=== PATIENT | male | born 1970 | race Caucasian/White ===

== ENCOUNTER 2018-10-30 17:52 | Inpatient (IN) ==
[2018-10-30] MEDS ORDERED: ONDANSETRON INJ 2 MG/ML 2 ML VIAL IV STA (18:07)
[2018-10-30] MEDS ORDERED: PANTOprazole 40 MG in SYRINGE 0 ML IV ONE (18:08)
[2018-10-30] MEDS ORDERED: SODIUM CHLORIDE 0.9% 1000ML 1,000 ML IV SCH (18:15)
--- NOTE | 2018-10-30 18:25 | Emergency Department Note ---
Entered by Kylie Irwin acting as a scribe for Adán Worrell DO History of Present Illness General Chief complaint: GI Assessment Stated complaint: GI ASSESSMENT, REFERRED BY URGENT CARE Time Seen by Provider: 10/30/18 18:01 Source: patient Mode of arrival: ambulatory Limitations: no limitations History of Present Illness Provider complaint: Gi Assessment Onset (ago): day(s) 2 Location: abdomen Severity: moderate Pain Consistency: + constant Maximum Pain Intensity: 5 Associated symptoms: + denies other symptoms and + nausea/vomiting; no chest pain, no fever/chills, no shortness of breath and no other (melena, hematochezia) Patient is a 48 year old male presenting to the ED with GI assessment beginning x2 days ago. Patient is having nausea, vomiting and diarrhea beginning upon onset, which is moderate in severity and constant since onset. He notes that he went to [facility], but was sent over to the ED as he is having coffee ground emesis. Patient notes he was recently had an abd contusion and is complaining of lower back pain for the past x2 weeks. Patient denies any current abd pain, melena, hematochezia, fevers, chills, CP, SOB, or any other complaints or concerns at this time. He denies any surgical history. He does not take aspirin, Tylenol or ibuprofen on a regular basis. Home Medications Home Medications Medication Instructions Recorded Confirmed Type trazodone 100 - 200 mg PO HS 08/21/18 10/30/18 History Allergies Allergy/AdvReac Type Severity Reaction Status Date / Time cat dander Allergy Intermediate HIVES, Verified 10/30/18 18:52 PUFFY EYES Past Med/Surg History Medical History No pertinent past medical history Surgical History No pertinent past surgical history Family History Other Family history non-contributory Social History Preferred Language: Portuguese Communication Ability: Effective Motor And Controls Tester Required: No Beliefs That Will Affect Care: None Current Living Situation: Spouse Other Information That Helps Us Care for You: No Feels Safe at Home: Yes Safety Concerns: Feels Safe At This Time Smoking Status: Never smoker Hx Alcohol Use: Yes Hx Substance Use: No Review of Systems See HPI for pertinent positives & negatives. and A total of 10 systems reviewed and were otherwise negative Physical Exam Vital Signs Vital Signs - 24 hr 10/30/18 17:58 10/30/18 18:38 10/30/18 19:19 Temperature 36.4 C L Temperature Source Oral Sepsis Recent Fever Within 48 Hours No Sepsis New/Unexplained Change in Mental Status No Sepsis Action Taken by Nursing No Action Required Pulse Rate 101 H 96 H Pulse Rate [Left Apical] Pulse Rate [Left Finger] Pulse Rate [Right Finger] Pulse Rate from SpO2 Sensor 96 H Pulse Rhythm [Left Finger] Pulse Strength [Left Finger] Respiratory Rate 18 24 Respiratory Effort / Characteristics Respiratory Depth Normal Respiratory Pattern Blood Pressure 121/75 133/79 Blood Pressure [Left Arm] Blood Pressure [Right Arm] Blood Pressure Mean 90 97 Blood Pressure Mean [Left Arm] Blood Pressure Mean [Right Arm] Blood Pressure Position [Left Arm] Blood Pressure Position [Right Arm] Pulse Oximetry 100 97 96 Oxygen Delivery Method Room Air 10/30/18 19:30 10/30/18 20:00 10/30/18 20:22 Temperature Temperature Source Sepsis Recent Fever Within 48 Hours Sepsis New/Unexplained Change in Mental Status Sepsis Action Taken by Nursing Pulse Rate 94 H 86 82 Pulse Rate [Left Apical] Pulse Rate [Left Finger] Pulse Rate [Right Finger] Pulse Rate from SpO2 Sensor 95 H Pulse Rhythm [Left Finger] Pulse Strength [Left Finger] Respiratory Rate 18 18 19 Respiratory Effort / Characteristics Respiratory Depth Respiratory Pattern Blood Pressure 124/78 99/64 L 97/56 L Blood Pressure [Left Arm] Blood Pressure [Right Arm] Blood Pressure Mean 93 75 69 Blood Pressure Mean [Left Arm] Blood Pressure Mean [Right Arm] Blood Pressure Position [Left Arm] Blood Pressure Position [Right Arm] Pulse Oximetry 97 Oxygen Delivery Method 10/30/18 21:00 10/30/18 21:30 10/30/18 22:10 Temperature 36.5 C Temperature Source Oral Sepsis Recent Fever Within 48 Hours Sepsis New/Unexplained Change in Mental Status Sepsis Action Taken by Nursing Pulse Rate 85 90 Pulse Rate [Left Apical] 99 H Pulse Rate [Left Finger] Pulse Rate [Right Finger] Pulse Rate from SpO2 Sensor Pulse Rhythm [Left Finger] Pulse Strength [Left Finger] Respiratory Rate 18 18 20 Respiratory Effort / Characteristics Non-Labored Respiratory Depth Normal Respiratory Pattern Regular Blood Pressure 110/70 131/74 Blood Pressure [Left Arm] Blood Pressure [Right Arm] 132/87 Blood Pressure Mean 83 93 Blood Pressure Mean [Left Arm] Blood Pressure Mean [Right Arm] 102 Blood Pressure Position [Left Arm] Blood Pressure Position [Right Arm] Pulse Oximetry 98 Oxygen Delivery Method Room Air 10/30/18 23:59 10/31/18 02:11 10/31/18 07:39 Temperature 37 C 37.7 C H 37.0 C Temperature Source Oral Oral Oral Sepsis Recent Fever Within 48 Hours Sepsis New/Unexplained Change in Mental Status Sepsis Action Taken by Nursing Pulse Rate Pulse Rate [Left Apical] Pulse Rate [Left Finger] Pulse Rate [Right Finger] 92 H 107 H 95 H Pulse Rate from SpO2 Sensor Pulse Rhythm [Left Finger] Pulse Strength [Left Finger] Respiratory Rate 18 20 20 Respiratory Effort / Characteristics Respiratory Depth Respiratory Pattern Blood Pressure Blood Pressure [Left Arm] 125/100 136/88 111/68 Blood Pressure [Right Arm] Blood Pressure Mean Blood Pressure Mean [Left Arm] 108 104 82 Blood Pressure Mean [Right Arm] Blood Pressure Position [Left Arm] Lying Lying Sitting Blood Pressure Position [Right Arm] Pulse Oximetry 95 96 93 Oxygen Delivery Method Room Air Room Air Room Air 10/31/18 08:00 10/31/18 11:48 10/31/18 13:25 Temperature 37.3 C 37 C Temperature Source Oral Oral Sepsis Recent Fever Within 48 Hours Sepsis New/Unexplained Change in Mental Status Sepsis Action Taken by Nursing Pulse Rate 104 H Pulse Rate [Left Apical] Pulse Rate [Left Finger] Pulse Rate [Right Finger] 97 H 97 H Pulse Rate from SpO2 Sensor Pulse Rhythm [Left Finger] Pulse Strength [Left Finger] Respiratory Rate 18 Respiratory Effort / Characteristics Respiratory Depth Respiratory Pattern Blood Pressure Blood Pressure [Left Arm] 119/85 134/80 Blood Pressure [Right Arm] Blood Pressure Mean Blood Pressure Mean [Left Arm] 96 98 Blood Pressure Mean [Right Arm] Blood Pressure Position [Left Arm] Sitting Blood Pressure Position [Right Arm] Sitting Pulse Oximetry 96 95 Oxygen Delivery Method Room Air Room Air 10/31/18 14:05 10/31/18 14:20 10/31/18 14:35 Temperature Temperature Source Sepsis Recent Fever Within 48 Hours Sepsis New/Unexplained Change in Mental Status Sepsis Action Taken by Nursing Pulse Rate Pulse Rate [Left Apical] Pulse Rate [Left Finger] 90 90 91 H Pulse Rate [Right Finger] Pulse Rate from SpO2 Sensor Pulse Rhythm [Left Finger] Regular Regular Regular Pulse Strength [Left Finger] Normal Normal Normal Respiratory Rate 16 18 18 Respiratory Effort / Characteristics Non-Labored Spontaneous Non-Labored Spontaneous Non-Labored Spontaneous Respiratory Depth Normal Normal Normal Respiratory Pattern Regular Regular Regular Blood Pressure Blood Pressure [Left Arm] 110/65 Blood Pressure [Right Arm] 96/55 L 107/66 110/65 Blood Pressure Mean Blood Pressure Mean [Left Arm] 80 Blood Pressure Mean [Right Arm] 68 79 80 Blood Pressure Position [Left Arm] Lying Blood Pressure Position [Right Arm] Lying Lying Lying Pulse Oximetry 95 95 94 Oxygen Delivery Method Room Air Room Air Room Air 10/31/18 15:44 Temperature 36.5 C Temperature Source Oral Sepsis Recent Fever Within 48 Hours Sepsis New/Unexplained Change in Mental Status Sepsis Action Taken by Nursing Pulse Rate Pulse Rate [Left Apical] Pulse Rate [Left Finger] 102 H Pulse Rate [Right Finger] Pulse Rate from SpO2 Sensor Pulse Rhythm [Left Finger] Pulse Strength [Left Finger] Respiratory Rate 18 Respiratory Effort / Characteristics Respiratory Depth Respiratory Pattern Blood Pressure Blood Pressure [Left Arm] Blood Pressure [Right Arm] 137/90 Blood Pressure Mean Blood Pressure Mean [Left Arm] Blood Pressure Mean [Right Arm] 105 Blood Pressure Position [Left Arm] Blood Pressure Position [Right Arm] Sitting Pulse Oximetry 95 Oxygen Delivery Method Room Air GENERAL: Patient is awake alert in no acute distress patient is resting comfortably and showing no signs of anxiety EYES: The conjunctivae are clear. The pupils are round and reactive. EARS, NOSE, MOUTH AND THROAT: The nose is without any evidence of any deformity. Mucous membranes are moist tongue is midline NECK: The neck is nontender and supple. RESPIRATORY: Normal respiratory effort is noted there is no evidence of wheezing rhonchi or rales CARDIOVASCULAR: Regular rate and rhythm noted there no murmurs rubs or gallops normal S1 normal S2 GASTROINTESTINAL: The abdomen is soft. Bowel sounds are present in all quadrants. Abdomen is nontender. There is slight resolving ecchymosis noted around the umbilicus. RECTAL: Dark stool noted which was heme positive BACK: No midline tenderness or or step-off noted range of motion in flexion extension as well as rotation no signs of muscle spasm noted MUSCULOSKELETAL/EXTREMITIES: There is no evidence of gross deformity full range of motion is noted in the hips and shoulders SKIN: There is no obvious evidence of any rash. There are no petechiae, pallor or cyanosis noted. NEUROLOGIC: Patient is awake alert and oriented x3. Course 1803: Past medical records reviewed. The patient was evaluated in room C11A, and a complete history and physical examination were performed 1939: Reassessed patient who notes his pain is worsening. 1951: Discussed case with Dr. Russell, who accepts patient for admission. Administered Medications Hydromorphone HCl (Dilaudid) 1 mg IV Q4H PRN PRN Reason: Pain Stop: 11/14/18 02:00 Last Admin: 10/31/18 16:00 Dose: 1 mg Documented by: [id number] Admin: 10/31/18 10:19 Dose: 1 mg Documented by: [id number] Admin: 10/31/18 05:51 Dose: 1 mg Documented by: [id number] Admin: 10/31/18 02:11 Dose: 1 mg Documented by: [id number] Potassium Chloride 40 meq/ (Sodium Chloride) 1,020 mls @ 150 mls/hr IV .Q6H48M SHANA Stop: 10/31/18 17:53 Last Infusion: 10/31/18 16:06 Dose: 0 mls/hr Documented by: [id number] Admin: 10/31/18 12:36 Dose: 150 mls/hr Documented by: [id number] Infusion: 10/31/18 12:36 Dose: 150 mls/hr Documented by: [id number] Infusion: 10/31/18 08:19 Dose: 150 mls/hr Documented by: [id number] Infusion: 10/31/18 07:44 Dose: 0 mls/hr Documented by: [id number] Admin: 10/31/18 05:15 Dose: 150 mls/hr Documented by: [id number] Infusion: 10/31/18 05:15 Dose: 150 mls/hr Documented by: [id number] Admin: 10/30/18 22:40 Dose: 150 mls/hr Documented by: [id number] Acetaminophen (Ofirmev) 1,000 mg in 100 mls @ 400 mls/hr IV Q8H PRN PRN Reason: Pain or Fever Stop: 11/29/18 22:09 Last Infusion: 10/31/18 12:06 Dose: 0 mls/hr Documented by: [id number] Admin: 10/31/18 11:51 Dose: 400 mls/hr Documented by: [id number] Infusion: 10/31/18 05:44 Dose: 0 mls/hr Documented by: [id number] Admin: 10/31/18 05:20 Dose: 400 mls/hr Documented by: [id number] Pantoprazole Sodium 40 mg/ (Dextrose) 100 mls @ 20 mls/hr IV Q5H SHANA Stop: 11/29/18 22:59 Last Admin: 10/31/18 16:00 Dose: 8 mg/hr, 20 mls/hr Documented by: [id number] Infusion: 10/31/18 12:44 Dose: 8 mg/hr, 20 mls/hr Documented by: [id number] Admin: 10/31/18 07:44 Dose: 8 mg/hr, 20 mls/hr Documented by: [id number] Infusion: 10/31/18 07:11 Dose: 8 mg/hr, 20 mls/hr Documented by: [id number] Admin: 10/31/18 02:11 Dose: 8 mg/hr, 20 mls/hr Documented by: [id number] Infusion: 10/31/18 02:10 Dose: 8 mg/hr, 20 mls/hr Documented by: [id number] Admin: 10/30/18 22:30 Dose: 8 mg/hr, 20 mls/hr Documented by: [id number] Ceftriaxone Sodium 1,000 mg/ (Dextrose) 60 mls @ 100 mls/hr IV DAILY SHANA Stop: 11/10/18 08:59 Last Infusion: 10/31/18 08:19 Dose: 0 mls/hr Documented by: [id number] Admin: 10/31/18 07:43 Dose: 100 mls/hr Documented by: [id number] Sodium Chloride (Nss 1000ml) 1,000 mls @ 125 mls/hr IV .Q8H SHANA Stop: 11/30/18 15:14 Last Admin: 10/31/18 16:00 Dose: 125 mls/hr Documented by: [id number] Ioversol (Optiray 320 100ml) 93 ml IV ONCE PRN PRN Reason: Interaction Checking Stop: 11/03/18 19:06 Last Admin: 10/30/18 19:07 Dose: 93 ml Documented by: [id number] Ioversol (Optiray 320 125ml) 116 ml IV ONCE PRN PRN Reason: Interaction Checking Stop: 11/04/18 14:57 Last Admin: 10/31/18 14:58 Dose: 116 ml Documented by: [id number] Ondansetron HCl (Zofran) 4 mg IV Q6H PRN PRN Reason: Nausea Stop: 11/29/18 22:09 Last Admin: 10/31/18 17:04 Dose: 4 mg Documented by: [id number] Sucralfate (Carafate) 1 gm PO QID SHANA Stop: 11/30/18 16:59 Last Admin: 10/31/18 16:07 Dose: 1 gm Documented by: [id number] Discontinued Medications Hydromorphone HCl (Dilaudid) 1 mg IV NOW STA Stop: 10/30/18 20:20 Last Admin: 10/30/18 20:26 Dose: 1 mg Documented by: [id number] Hydromorphone HCl (Dilaudid) 0.5 mg IV Q4H PRN PRN Reason: Pain Stop: 11/13/18 22:22 Last Admin: 10/31/18 00:02 Dose: 0.5 mg Documented by: [id number] Pantoprazole Sodium 40 mg/ (Syringe) 10 mls @ 5 mls/min IV NOW ONE Stop: 10/30/18 18:09 Last Admin: 10/30/18 18:34 Dose: 5 mls/min Documented by: [id number] Sodium Chloride (Nss 1000ml) 1,000 mls @ 999 mls/hr IV .Q1H1M SHANA Stop: 10/30/18 19:15 Last Infusion: 10/30/18 19:31 Dose: 0 mls/hr Documented by: [id number] Admin: 10/30/18 18:30 Dose: 999 mls/hr Documented by: [id number] Ceftriaxone Sodium (Rocephin) 1,000 mg in 50 mls @ 100 mls/hr IV NOW STA Stop: 10/30/18 20:39 Last Infusion: 10/30/18 21:00 Dose: 0 mls/hr Documented by: [id number] Admin: 10/30/18 20:26 Dose: 100 mls/hr Documented by: [id number] Influenza Virus Vaccine Quadrival (Flucelvax Quad Vaccine) 0.5 ml IM .ONCE ONE Stop: 10/31/18 06:01 Last Admin: 10/31/18 10:19 Dose: 0.5 ml Documented by: [id number] Morphine Sulfate (Morphine Sulfate) 4 mg IV Q15M PRN PRN Reason: Pain Stop: 11/13/18 18:06 Last Admin: 10/30/18 20:02 Dose: 4 mg Documented by: [id number] Admin: 10/30/18 18:29 Dose: 4 mg Documented by: [id number] Ondansetron HCl (Zofran) 4 mg IV NOW STA Stop: 10/30/18 18:08 Last Admin: 10/30/18 18:29 Dose: 4 mg Documented by: [id number] Medical Decision Making Differential Diagnosis Differential diagnosis: Etiologies such as appendicitis, diverticulitis, PUD, biliary pathology, UTI, p ancreatitis, obstruction, mesenteric ischemia, aortic pathology, infections, inflammatory bowel disease, renal colic, as well as others were entertained. Medical Records Attestation: I reviewed the patient's medical records. Home Medications Current Medication List: was personally reviewed by me Laboratory Data Attestation: I reviewed the patient's lab results. Result diagrams: 10/31/18 11:43 10/31/18 04:49 Lab Results 10/30/18 10/30/18 10/30/18 Range/Units 18:20 18:20 18:20 WBC 8.13 (4.8-10.8) K/uL RBC 5.25 (4.7-6.1) M/uL Hgb 16.1 (14.0-18.0) g/dL POC Hgb (14.0-18.0) g/dl Hct 45.1 (42-52) % POC Hct (42-52) % MCV 85.9 (80-100) fL MCH 30.7 (25-34) pg MCHC 35.7 (32-36) g/dL RDW Std Deviation 41.9 (36.4-46.3) fL RDW Coeff of Cruz 13.3 (11.5-14.5) % Plt Count 94 L (130-400) K/uL MPV 10.1 (7.4-10.4) fL Immature Gran % (Auto) 0.4 % Neut % (Auto) 82.8 % Lymph % (Auto) 7.5 % Glynn % (Auto) 9.0 % Eos % (Auto) 0.1 % Baso % (Auto) 0.2 % Immature Gran # (Auto) 0.03 H (0.00-0.02) K/uL Neut # (Auto) 6.73 H (1.4-6.5) K/uL Lymph # (Auto) 0.61 L (1.2-3.4) K/uL Glynn # (Auto) 0.73 H (0.11-0.59) K/uL Eos # (Auto) 0.01 (0-0.5) K/uL Baso # (Auto) 0.02 (0-0.2) K/uL Toxic Vacuolation 1+ Platelet Estimate Decreased (Normal) PT 11.1 (9.0-12.0) Seconds INR 1.1 (0.9-1.1) APTT 30.1 (21.0-31.0) Seconds PTT Ratio 1.1 D-Dimer (0-500) ug/L FEU POC Sodium (135-144) mEq/L Sodium 135 L (136-145) mmol/L POC Potassium (3.3-5.0) mEq/L Potassium 3.1 L (3.5-5.1) mmol/L POC Chloride (101-112) mEq/L Chloride 100 (98-107) mmol/L Carbon Dioxide 27 (21-32) mmol/L POC Total CO2 (24-31) mEq/l Anion Gap 8.0 (3-11) POC Anion Gap (16-25) mmol/L POC BUN (7-18) mg/dl BUN 35 H (7-18) mg/dl Creatinine 1.95 H (0.6-1.4) mg/dl POC Creatinine (0.6-1.3) mg/dl Est Cr Clr Drug Dosing 62.9 ml/min Est GFR ( Amer) 46.5 Est GFR (Non-Af Amer) 40.1 BUN/Creatinine Ratio 18.0 (10-20) Glucose 123 H (70-99) mg/dl POC Glucose (other) (70-99) mg/dl Calcium 8.3 L (8.5-10.1) mg/dl POC Ioniz Calcium Adrian (1.12-1.32) mmol/l Magnesium (1.8-2.4) mg/dl Total Bilirubin 0.8 (0.2-1) mg/dl Direct Bilirubin (0-0.2) mg/dl AST 30 (15-37) U/L ALT 38 (12-78) U/L Alkaline Phosphatase 67 (45-117) U/L Troponin I < 0.015 (0-0.045) ng/ml Total Protein 7.9 (6.4-8.2) gm/dl Albumin 3.3 L (3.4-5.0) gm/dl Globulin 4.6 H (2.5-4.0) gm/dl Albumin/Globulin Ratio 0.7 L (0.9-2) Lipase 203 (73-393) U/L Urine Color Urine Appearance (Clear) Urine pH (4.5-7.5) Ur Specific Ringoes (1.000-1.030) Urine Protein (Negative) Urine Glucose (UA) (Negative) Urine Ketones (Negative) Urine Blood (Negative) Urine Nitrite (Negative) Urine Bilirubin (Negative) Urine Urobilinogen (Negative) Ur Leukocyte Esterase (Negative) Urine WBC (Auto) (0-5) /hpf Urine RBC (Auto) (0-4) /hpf U Hyaline Cast (Auto) (0-5) /lpf U Epithel Cells (Auto) (0-5) /lpf Urine Bacteria (Auto) (Negative) Amorphous Sediment (None Prsent) Urine Yeast 10/30/18 10/31/18 10/31/18 Range/Units 18:25 00:06 01:20 WBC (4.8-10.8) K/uL RBC (4.7-6.1) M/uL Hgb 14.3 (14.0-18.0) g/dL POC Hgb 16.7 (14.0-18.0) g/dl Hct 40.8 L (42-52) % POC Hct 49 (42-52) % MCV (80-100) fL MCH (25-34) pg MCHC (32-36) g/dL RDW Std Deviation (36.4-46.3) fL RDW Coeff of Cruz (11.5-14.5) % Plt Count (130-400) K/uL MPV (7.4-10.4) fL Immature Gran % (Auto) % Neut % (Auto) % Lymph % (Auto) % Glynn % (Auto) % Eos % (Auto) % Baso % (Auto) % Immature Gran # (Auto) (0.00-0.02) K/uL Neut # (Auto) (1.4-6.5) K/uL Lymph # (Auto) (1.2-3.4) K/uL Glynn # (Auto) (0.11-0.59) K/uL Eos # (Auto) (0-0.5) K/uL Baso # (Auto) (0-0.2) K/uL Toxic Vacuolation Platelet Estimate (Normal) PT (9.0-12.0) Seconds INR (0.9-1.1) APTT (21.0-31.0) Seconds PTT Ratio D-Dimer (0-500) ug/L FEU POC Sodium 138 (135-144) mEq/L Sodium (136-145) mmol/L POC Potassium 3.2 L (3.3-5.0) mEq/L Potassium (3.5-5.1) mmol/L POC Chloride 97 L (101-112) mEq/L Chloride (98-107) mmol/L Carbon Dioxide (21-32) mmol/L POC Total CO2 26 (24-31) mEq/l Anion Gap (3-11) POC Anion Gap 19.0 (16-25) mmol/L POC BUN 34 H (7-18) mg/dl BUN (7-18) mg/dl Creatinine (0.6-1.4) mg/dl POC Creatinine 1.9 H (0.6-1.3) mg/dl Est Cr Clr Drug Dosing ml/min Est GFR ( Amer) Est GFR (Non-Af Amer) BUN/Creatinine Ratio (10-20) Glucose (70-99) mg/dl POC Glucose (other) 124 H (70-99) mg/dl Calcium (8.5-10.1) mg/dl POC Ioniz Calcium Adrian 1.08 L (1.12-1.32) mmol/l Magnesium (1.8-2.4) mg/dl Total Bilirubin (0.2-1) mg/dl Direct Bilirubin (0-0.2) mg/dl AST (15-37) U/L ALT (12-78) U/L Alkaline Phosphatase (45-117) U/L Troponin I (0-0.045) ng/ml Total Protein (6.4-8.2) gm/dl Albumin (3.4-5.0) gm/dl Globulin (2.5-4.0) gm/dl Albumin/Globulin Ratio (0.9-2) Lipase (73-393) U/L Urine Color Yellow Urine Appearance Clear (Clear) Urine pH 5.0 (4.5-7.5) Ur Specific Ringoes > 1.045 H (1.000-1.030) Urine Protein 2+ H (Negative) Urine Glucose (UA) Negative (Negative) Urine Ketones Trace H (Negative) Urine Blood 2+ H (Negative) Urine Nitrite Negative (Negative) Urine Bilirubin Negative (Negative) Urine Urobilinogen Negative (Negative) Ur Leukocyte Esterase Negative (Negative) Urine WBC (Auto) 5-10 H (0-5) /hpf Urine RBC (Auto) 0-4 (0-4) /hpf U Hyaline Cast (Auto) 0 (0-5) /lpf U Epithel Cells (Auto) >30 H (0-5) /lpf Urine Bacteria (Auto) 1+ H (Negative) Amorphous Sediment Present H (None Prsent) Urine Yeast Not Reportable 10/31/18 10/31/18 10/31/18 Range/Units 04:49 04:49 04:49 WBC 7.04 (4.8-10.8) K/uL RBC 4.71 (4.7-6.1) M/uL Hgb 13.9 L (14.0-18.0) g/dL POC Hgb (14.0-18.0) g/dl Hct 41.0 L (42-52) % POC Hct (42-52) % MCV 87.0 (80-100) fL MCH 29.5 (25-34) pg MCHC 33.9 (32-36) g/dL RDW Std Deviation 43.6 (36.4-46.3) fL RDW Coeff of Cruz 13.7 (11.5-14.5) % Plt Count 109 L (130-400) K/uL MPV 10.4 (7.4-10.4) fL Immature Gran % (Auto) 0.4 % Neut % (Auto) 82.3 % Lymph % (Auto) 7.5 % Glynn % (Auto) 9.7 % Eos % (Auto) 0.0 % Baso % (Auto) 0.1 % Immature Gran # (Auto) 0.03 H (0.00-0.02) K/uL Neut # (Auto) 5.79 (1.4-6.5) K/uL Lymph # (Auto) 0.53 L (1.2-3.4) K/uL Glynn # (Auto) 0.68 H (0.11-0.59) K/uL Eos # (Auto) 0.00 (0-0.5) K/uL Baso # (Auto) 0.01 (0-0.2) K/uL Toxic Vacuolation Platelet Estimate (Normal) PT (9.0-12.0) Seconds INR (0.9-1.1) APTT (21.0-31.0) Seconds PTT Ratio D-Dimer (0-500) ug/L FEU POC Sodium (135-144) mEq/L Sodium 137 (136-145) mmol/L POC Potassium (3.3-5.0) mEq/L Potassium 3.5 (3.5-5.1) mmol/L POC Chloride (101-112) mEq/L Chloride 104 (98-107) mmol/L Carbon Dioxide 26 (21-32) mmol/L POC Total CO2 (24-31) mEq/l Anion Gap 7.0 (3-11) POC Anion Gap (16-25) mmol/L POC BUN (7-18) mg/dl BUN 31 H (7-18) mg/dl Creatinine 1.46 H D (0.6-1.4) mg/dl POC Creatinine (0.6-1.3) mg/dl Est Cr Clr Drug Dosing 84.2 ml/min Est GFR ( Amer) 65.9 Est GFR (Non-Af Amer) 56.9 BUN/Creatinine Ratio 21.4 H (10-20) Glucose 125 H (70-99) mg/dl POC Glucose (other) (70-99) mg/dl Calcium 7.7 L (8.5-10.1) mg/dl POC Ioniz Calcium Adrian (1.12-1.32) mmol/l Magnesium 2.0 (1.8-2.4) mg/dl Total Bilirubin 0.5 (0.2-1) mg/dl Direct Bilirubin 0.1 (0-0.2) mg/dl AST 32 (15-37) U/L ALT 33 (12-78) U/L Alkaline Phosphatase 64 (45-117) U/L Troponin I (0-0.045) ng/ml Total Protein 7.0 (6.4-8.2) gm/dl Albumin 2.8 L (3.4-5.0) gm/dl Globulin (2.5-4.0) gm/dl Albumin/Globulin Ratio (0.9-2) Lipase 99 (73-393) U/L Urine Color Urine Appearance (Clear) Urine pH (4.5-7.5) Ur Specific Ringoes (1.000-1.030) Urine Protein (Negative) Urine Glucose (UA) (Negative) Urine Ketones (Negative) Urine Blood (Negative) Urine Nitrite (Negative) Urine Bilirubin (Negative) Urine Urobilinogen (Negative) Ur Leukocyte Esterase (Negative) Urine WBC (Auto) (0-5) /hpf Urine RBC (Auto) (0-4) /hpf U Hyaline Cast (Auto) (0-5) /lpf U Epithel Cells (Auto) (0-5) /lpf Urine Bacteria (Auto) (Negative) Amorphous Sediment (None Prsent) Urine Yeast 10/31/18 10/31/18 Range/Units 11:43 12:37 WBC (4.8-10.8) K/uL RBC (4.7-6.1) M/uL Hgb 13.7 L (14.0-18.0) g/dL POC Hgb (14.0-18.0) g/dl Hct 40.2 L (42-52) % POC Hct (42-52) % MCV (80-100) fL MCH (25-34) pg MCHC (32-36) g/dL RDW Std Deviation (36.4-46.3) fL RDW Coeff of Cruz (11.5-14.5) % Plt Count (130-400) K/uL MPV (7.4-10.4) fL Immature Gran % (Auto) % Neut % (Auto) % Lymph % (Auto) % Glynn % (Auto) % Eos % (Auto) % Baso % (Auto) % Immature Gran # (Auto) (0.00-0.02) K/uL Neut # (Auto) (1.4-6.5) K/uL Lymph # (Auto) (1.2-3.4) K/uL Glynn # (Auto) (0.11-0.59) K/uL Eos # (Auto) (0-0.5) K/uL Baso # (Auto) (0-0.2) K/uL Toxic Vacuolation Platelet Estimate (Normal) PT (9.0-12.0) Seconds INR (0.9-1.1) APTT (21.0-31.0) Seconds PTT Ratio D-Dimer 1890 H* (0-500) ug/L FEU POC Sodium (135-144) mEq/L Sodium (136-145) mmol/L POC Potassium (3.3-5.0) mEq/L Potassium (3.5-5.1) mmol/L POC Chloride (101-112) mEq/L Chloride (98-107) mmol/L Carbon Dioxide (21-32) mmol/L POC Total CO2 (24-31) mEq/l Anion Gap (3-11) POC Anion Gap (16-25) mmol/L POC BUN (7-18) mg/dl BUN (7-18) mg/dl Creatinine (0.6-1.4) mg/dl POC Creatinine (0.6-1.3) mg/dl Est Cr Clr Drug Dosing ml/min Est GFR ( Amer) Est GFR (Non-Af Amer) BUN/Creatinine Ratio (10-20) Glucose (70-99) mg/dl POC Glucose (other) (70-99) mg/dl Calcium (8.5-10.1) mg/dl POC Ioniz Calcium Adrian (1.12-1.32) mmol/l Magnesium (1.8-2.4) mg/dl Total Bilirubin (0.2-1) mg/dl Direct Bilirubin (0-0.2) mg/dl AST (15-37) U/L ALT (12-78) U/L Alkaline Phosphatase (45-117) U/L Troponin I (0-0.045) ng/ml Total Protein (6.4-8.2) gm/dl Albumin (3.4-5.0) gm/dl Globulin (2.5-4.0) gm/dl Albumin/Globulin Ratio (0.9-2) Lipase (73-393) U/L Urine Color Urine Appearance (Clear) Urine pH (4.5-7.5) Ur Specific [place] (1.000-1.030) Urine Protein (Negative) Urine Glucose (UA) (Negative) Urine Ketones (Negative) Urine Blood (Negative) Urine Nitrite (Negative) Urine Bilirubin (Negative) Urine Urobilinogen (Negative) Ur Leukocyte Esterase (Negative) Urine WBC (Auto) (0-5) /hpf Urine RBC (Auto) (0-4) /hpf U Hyaline Cast (Auto) (0-5) /lpf U Epithel Cells (Auto) (0-5) /lpf Urine Bacteria (Auto) (Negative) Amorphous Sediment (None Prsent) Urine Yeast Imaging Data Radiologist's Impression: XR chest 1V portable CLINICAL HISTORY: 48 years-old Male presenting with pain. TECHNIQUE: Portable upright AP view of the chest was obtained. COMPARISON: None. FINDINGS: Cardiac silhouette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
[2018-10-30] MEDS: MoRPHine SULFATE 4 MG/ML 1 ML CARP\\VIAL IV PRN ×2 (18:29→20:02)
[2018-10-30 18:37] LABS: iSTAT Creatinine 1.9 mg/dl (0.6-1.3); iSTAT Hemoglobin 16.7 g/dl (14.0-18.0); iSTAT Ionized Calcium 1.08 mmol/l (1.12-1.32); iSTAT Potassium 3.2 mEq/L (3.3-5.0)
[2018-10-30 18:54] LABS: INR 1.1 (0.9-1.1); Partial Thromboplastin Ratio 1.1; Partial Thromboplastin Time 30.1 Seconds (21.0-31.0); Prothrombin Time 11.1 Seconds (9.0-12.0)
--- NOTE | 2018-10-30 18:55 | XRay Report ---
XR chest 1V portable CLINICAL HISTORY: 48 years-old Male presenting with pain. TECHNIQUE: Portable upright AP view of the chest was obtained. COMPARISON: None. FINDINGS: Cardiac silhouette top normal in size. Mildly low lung volumes. No focal opacity. No large effusion o r pneumothorax. Osseous structures normal. Upper abdomen normal. IMPRESSION: 1. No acute cardiopulmonary disease. Electronically signed by: Binu Strange M.D. 10/30/2018 6:53 PM
[2018-10-30 18:58] LABS: Alanine Aminotransferase 38 U/L (12-78); Albumin Level 3.3 gm/dl (3.4-5.0); Aspartate Aminotransferase 30 U/L (15-37); Blood Urea Nitrogen 35 mg/dl (7-18); Calcium 8.3 mg/dl (8.5-10.1); Carbon Dioxide 27 mmol/L (21-32); Chloride 100 mmol/L (98-107); Creatinine Clr Calc Pharmacy 62.9 ml/min; Est GFR (African American) 46.5; Est GFR (Non-African American) 40.1; Glucose 123 mg/dl (70-99); Potassium 3.1 mmol/L (3.5-5.1); Sodium 135 mmol/L (136-145)
[2018-10-30 19:03] LABS: Albumin Globulin Ratio 0.7 (0.9-2); Alkaline Phosphatase 67 U/L (45-117); Bilirubin,Total 0.8 mg/dl (0.2-1); Globulin 4.6 gm/dl (2.5-4.0); Total Protein 7.9 gm/dl (6.4-8.2); Troponin I < 0.015 ng/ml (0-0.045)
[2018-10-30] MEDS ORDERED: IOVERSOL 100ml IV PRN (19:07)
[2018-10-30 19:12] LABS: Hematocrit (blood only) 45.1 % (42-52); Hemoglobin 16.1 g/dL (14.0-18.0); Mean Corpuscular Hgb Conc 35.7 g/dL (32-36); Mean Corpuscular Volume 85.9 fL (80-100); Mean Platelet Volume 10.1 fL (7.4-10.4); Platelet Count 94 K/uL (130-400); RDW Coefficient of Variation 13.3 % (11.5-14.5); RDW Standard Deviation 41.9 fL (36.4-46.3); Red Blood Count 5.25 M/uL (4.7-6.1); White Blood Count 8.13 K/uL (4.8-10.8)
[2018-10-30 19:16] LABS: Basophils # (auto) 0.02 K/uL (0-0.2); Basophils % (auto) 0.2 %; Eosinophils # (auto) 0.01 K/uL (0-0.5); Eosinophils % (auto) 0.1 %; Immature Granulocytes # (auto) 0.03 K/uL (0.00-0.02); Immature Granulocytes % (auto) 0.4 %; Lymphocytes # (auto) 0.61 K/uL (1.2-3.4); Lymphocytes % (auto) 7.5 %; Monocytes # (auto) 0.73 K/uL (0.11-0.59); Neutrophils # (auto) 6.73 K/uL (1.4-6.5); Neutrophils % (auto) 82.8 %; Platelet Estimate Decreased (Normal); Toxic Vacuolation 1+
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
[2018-10-30] MEDS ORDERED: cefTRIAXone SODIUM 1,000 MG/50 ML BAG IV STA (20:10)
[2018-10-30] MEDS ORDERED: HYDROmorphone INJ 1 MG/ML SYRINGE IV STA (20:19)
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
[2018-10-30] MEDS ORDERED: ONDANSETRON INJ 2 MG/ML 2 ML VIAL IV PRN (22:10)
[2018-10-30] MEDS ORDERED: HYDROmorphone INJ 0.5 MG/0.5 ML SYR IV PRN (22:23)
[2018-10-30] MEDS: PANTOprazole 40 MG in DEXTROSE 5% 100 ML IV SCH (22:30)
[2018-10-30] MEDS: POTASSIUM CHLORIDE 40 MEQ in SODIUM CHLORIDE 0.9% 1000ML 1,000 ML IV SCH (22:40)
[2018-10-31 00:26] LABS: Hematocrit (blood only) 40.8 % (42-52); Hemoglobin 14.3 g/dL (14.0-18.0)
[2018-10-31] MEDS: PANTOprazole 40 MG in DEXTROSE 5% 100 ML IV SCH ×4 (02:11→21:46)
[2018-10-31] MEDS: HYDROmorphone INJ 1 MG/ML SYRINGE IV PRN ×5 (02:11→23:23)
[2018-10-31 02:21] LABS: Appearance Urine Clear (Clear); Bilirubin Urine Negative (Negative); Blood Urine 2+ (Negative); Color Urine Yellow; Epithelial Cell Urine Auto >30 /lpf (0-5); Glucose Urine UA Negative (Negative); Ketones Urine Trace (Negative); Leukocyte Esterase Urine Negative (Negative); Nitrite Urine Negative (Negative); Protein Urine 2+ (Negative); RBC Urine Automated 0-4 /hpf (0-4); Specific Gravity Urine > 1.045 (1.000-1.030); Urobilinogen Urine Negative (Negative)
[2018-10-31 02:39] LABS: Amorphous Sediment Urine Present (None Prsent); Bacteria Urine Automated 1+ (Negative); Cast Urine Automated 0 /lpf (0-5)
[2018-10-31] MEDS: POTASSIUM CHLORIDE 40 MEQ in SODIUM CHLORIDE 0.9% 1000ML 1,000 ML IV SCH ×2 (05:15→12:36)
[2018-10-31] MEDS: ACETAMINOPHEN 1,000 MG/100 ML VIAL IV PRN ×2 (05:20→11:51)
[2018-10-31 05:35] LABS: Basophils # (auto) 0.01 K/uL (0-0.2); Basophils % (auto) 0.1 %; Hemoglobin 13.9 g/dL (14.0-18.0); Immature Granulocytes # (auto) 0.03 K/uL (0.00-0.02); Immature Granulocytes % (auto) 0.4 %; Lymphocytes # (auto) 0.53 K/uL (1.2-3.4); Lymphocytes % (auto) 7.5 %; Mean Corpuscular Hgb Conc 33.9 g/dL (32-36); Mean Platelet Volume 10.4 fL (7.4-10.4); Monocytes # (auto) 0.68 K/uL (0.11-0.59); Monocytes % (auto) 9.7 %; Neutrophils # (auto) 5.79 K/uL (1.4-6.5); Neutrophils % (auto) 82.3 %; Platelet Count 109 K/uL (130-400); RDW Coefficient of Variation 13.7 % (11.5-14.5); RDW Standard Deviation 43.6 fL (36.4-46.3); Red Blood Count 4.71 M/uL (4.7-6.1); White Blood Count 7.04 K/uL (4.8-10.8)
[2018-10-31] MEDS ORDERED: INFLUENZA ADMINISTRATION CHARGE ONE (06:00)
[2018-10-31] MEDS ORDERED: INFLUENZA VIRUS QUAD VACCINE 0.5 ML SYR IM ONE (06:00)
[2018-10-31 06:05] LABS: BUN Creatinine Ratio 21.4 (10-20); Calcium 7.7 mg/dl (8.5-10.1); Creatinine Clr Calc Pharmacy 84.2 ml/min; Est GFR (African American) 65.9; Est GFR (Non-African American) 56.9; Potassium 3.5 mmol/L (3.5-5.1)
[2018-10-31] MEDS: cefTRIAXone SODIUM 1,000 MG in DEXTROSE 5% 50 ML IV SCH (07:43)
--- NOTE | 2018-10-31 08:07 | Gastrointestinal Consultation ---
Date of Consultation October 31, 2018 Assessment & Plan (1) Coffee ground emesis: Plan for EGD today to r/o ulcers, esophagitis, gastritis (2) RUQ pain: Though CT, labs w/o evidence of pancreatitis yesterday, his symptoms are very suggestive of that. Will recheck LFTs, lipase and get a RUQ US (r/o new bile duct abnormalities since the CT such as choledocholithiasis). Present on Admission?: Yes (3) Gastroenteritis: N/V/Diarrhea are resolving. Appreciate primary hospitalists management of dehydration. Present on Admission?: Yes Supervising Physician Co-Signing Physician Notes I have performed a history and physical examination of this patient and reviewed the electronic medical record. Specifically, on physical examination there is exquisite tenderness in the RUQ, worse on movement. I have discussed the case with ALISSA Garcia. The above note reflects my findings, conclusions, and recommendations. Adán Musa MD History of Present Illness Reason for Consultation: GI Bleed (coffee grounds emesis) Requesting Physician: Dr. La Attending Physician: Elliott Castorena MD, PhD, [facility] History of Present Illness Mr. Orion Luong is a 48 yr old male with and unremarkable PMH (though Ct mentions chronic renal artery enlargement - AV fistula, pt is unaware and denies any other prior imaging). He presented to the ED yesterday for an intense RUQ pain radiating to the back. 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 This discomfort was nearly resolved. In addition, what he thought was a "stomach bug," began on Tuesday, consisting of chills/sweats and nausea/vomiting/diarrhea. On Tue and Tuesday, this was most severe, passing up to 10 liquid BMs/day and vomiting about 2 times/day. He noticed dark, coffee grounds in emesis and believes that this occurred in subsequent episodes of vomiting but is unsure. he has not been able to eating/drink since Tuesday (4 days). This illness seemed to be improving when the RUQ pain began. Dr. Chaudhary was consulted for GI bleed. We are happy to provide care for this patient in his absence. On arrival, stool was occult positive. CT abd/pelvis with IV/oral contrast with the chronic renal artery changes and diverticulosis but no acute changes. Hb on arrival was 16 and is 13.9 this morning BUN 35-> 31, Cr 1.9->1.46. LFTs and lipase have been normal. On exam, there were some unexpected findings: he appears very uncomfortable and points tot the RUQ/lower right chest pain explaining that it radiates around the right side to the back. This pain is much worse with deep breaths. He is tachycardic 100 - 110 and is sweating. His epigastric area is mildly tender on palpation and the RUQ moderately tender. He also reports new left knee pain and bilateral foot pain - both new this morning, requiring help to ambulate. No joint redness or edema and no rashes. He does have normal pulse oximetry. He has not had further vomiting or diarrhea since arrival. He denies any NSAID use. He does not smoke. He reports drinking about 2 beers/day. Allergies Allergy/AdvReac Type Severity Reaction Status Date / Time cat dander Allergy Intermediate HIVES, Verified 10/30/18 18:52 PUFFY EYES Home Medications Home Medications Medication Instructions Recorded Confirmed Type trazodone 100 - 200 mg PO HS 08/21/18 10/30/18 History Patient History Medical History No pertinent past medical history Surgical History No pertinent past surgical history Family History Other Family history non-contributory Social History Preferred Language: Armenian Communication Ability: Effective Steward/Stewardess Second Class Required: No Beliefs That Will Affect Care: None Current Living Situation: Spouse Other Information That Helps Us Care for You: No Feels Safe at Home: Yes Safety Concerns: Feels Safe At This Time Smoking Status: Never smoker Hx Alcohol Use: Yes Hx Substance Use: No Review of Systems Constitutional: + fever, + chills and + body aches joint pain denies any eye symptoms denies upper respiratory symptoms Respiratory: + pain on inspiration (severe, pain in right lower chest and RUQ); no cough, no chest congestion and no dyspnea Cardiovascular: as per Subjective / HPI and + chest pain (no generalized CP; no left sided CP) Gastrointestinal: + abdominal pain, + nausea, + vomiting and + coffee ground emesis diarrhea Musculoskeletal: as per Subjective / HPI, + back pain, + joint pain, + myalgia and + body aches Integumentary: no rash, no lesions and no erythema abdominal ecchymosis from the Bobcat safety bar Neurologic: no gait abnormality, no unsteadiness, no localized weakness, no tremor(s) and no syncope difficulty ambulating today is related to pain, not dizziness or strength issues Psychiatric: + change in appetite; no depression and no hopelessness Endocrine: + fatigue very thirsty Hematologic / Lymphatic: no easy bleeding, no easy bruising and no coagulopathy Allergy / Immunological: no cough, no dyspnea and no rash Physical Exam Vital Signs (Past 24 Hours): Last Vital Signs Temp 37.0 C 10/31/18 07:39 Pulse 95 H 10/31/18 07:39 Resp 20 10/31/18 07:39 BP 111/68 10/31/18 07:39 Pulse Ox 93 10/31/18 07:39 Constitutional: WD/WN, vitals as above well developed, well nourished, + acute distress, + ill appearing, cooperative and + diaphoretic Eyes: PERRL, conjunctivae normal, anicteric sclerae ENMT: external ear and nose normal, oropharynx normal Neck: trachea midline, no thyromegaly Respiratory: normal respiratory effort, lungs clear to auscultation Cardiovascular: HR 100 - then with increased pain with deep breath increased to 110 and quickly back to 90 - 100 with sitting still and purposeful shallow breathing. No murmurs. No irregular rhythm. Gastrointestinal (Abdomen): Inspection/Auscultation: + abdominal wall ecchymosis; abdomen not distended and no abdominal edema Percussion/Palpation: + abdomen tender (RUQ /epigastric area) and abdomen soft; no ascites Musculoskeletal: no red or swollen joints Skin: no rashes, warm and dry no jaundice Neurologic: PERRL, EOMI, accommodation nl, no face palsy, no dysarthria Psychiatric: A+Ox3, euthymic affect Lymphatic: no cervical or axillary lymphadenopathy Results & Data Diagnostic Findings Urgent X-ray done after exam this morning :IMPRESSION: Mild subsegmental bibasilar atelectasis. CT abd/pelvis with IV/oral contrast: 1. No acute intra-abdominal injury. 2. 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 These findings are chronic. 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 No convincing evidence of a renal mass or tumor thrombus. A small renal vein thrombus may be present. Vascular surgery or interventional radiology consultat [facility] for angiographic evaluation recommended on a nonemergent basis. No evidence of hemorrhage or other acute pathology related to this finding. The report will be called/faxed according to standard departmental protocol.
--- NOTE | 2018-10-31 09:12 | XRay Report ---
XR chest 1V portable HISTORY: 48 years-old Male intense pain with deep breaths, tachycardia acute tachycardia with atypic al chest pain COMPARISON: Chest radiograph and CT abdomen and pelvis 10/30/2018 TECHNIQUE: Portable AP view of the chest FINDINGS: Cardiomediastinal and hilar silhouettes are within normal limits. There is no pneumothorax, pleural e ffusion, focal airspace consolidation or overt pulmonary edema. Subsegmental bibasilar linear opaciti es are noted. Mild degenerative changes of the right shoulder. IMPRESSION: Mild subsegmental bibasilar atelectasis. The above report was generated using voice recognition software. It may contain grammatical, syntax o r spelling errors. Electronically signed by: Doyle Felipe M.D. 10/31/2018 9:11 AM
--- NOTE | 2018-10-31 09:51 | Nephrology Consultation ---
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 and unlikely that this is a cause of acute symptoms -- Vascular follow up would be encouraged for additional evaluation in the future if needed -- No evidence of high-output HF currently, no hematuria, no right sided pain or evidence of retroperitoneal bleeding -- Defer additional imaging to vascular surgery but not apparent urgency for additional evaluation at this time (3) Prerenal azotemia: -- Improving with IVF -- Maintain electrolyte neutral IVF to encourage positive fluid balance -- No obstruction on CT -- UA bland and acellular -- Medications appropriate for kidney function -- Monitor metabolic profile daily History of Present Illness Reason for Consultation: Renal arteriovenous fistula Requesting Physician: Elliott Castorena MD, PhD, [facility] Attending Physician: Elliott Castorena MD, PhD, [facility] History of Present Illness Mr. Orion Luong is a 48-year-old male who was seen and evaluated in his hospital room this morning for evaluation of possible renal arteriovenous fistula. The patient presented to the ED at [facility] yesterday with reported coffee ground emesis. 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 Orion describes several days of lower abdominal pain following the event. These symptoms eventually resolved. Three days ago, he developed nausea, vomiting, diarrhea. He denies melena or hematochezia. He did reported possible coffee ground emesis. He has not been able to keep food down. He denies any sick contacts. Orion denies any hematuria. CT scan obtained in the emergency department with IV contrast demonstrates enlargement of the left renal vein and left renal artery. Findings are felt to be chronic. Calcifications approximating the renal vein can be noted. This is concerning for a renal arteriovenous fistula. A small renal vein thrombus may be present. Creatinine was elevated at 1.9 mg/dL on admission. Metabolic profile is otherwise appropriate. UA is bland and acellular. Orion continues to suffer with severe abdominal pain. Pain is predominately located in the right upper quadrant and radiating to the back. He has significant epigastric discomfort. He has nausea. He denies any emesis overnight. He has not experienced similar symptoms in the past. He denies fevers or chills. He denies any urinary symptoms. He reports some numbness in his feet which is new. Allergies Allergy/AdvReac Type Severity Reaction Status Date / Time cat dander Allergy Intermediate HIVES, Verified 10/30/18 18:52 PUFFY EYES Home Medications Home Medications Medication Instructions Recorded Confirmed Type trazodone 100 - 200 mg PO HS 08/21/18 10/30/18 History Patient History Medical History No pertinent past medical history Surgical History No pertinent past surgical history Family History Other Family history non-contributory Social History Preferred Language: Cymro Communication Ability: Effective Advertising Agent Required: No Beliefs That Will Affect Care: None Current Living Situation: Spouse Other Information That Helps Us Care for You: No Feels Safe at Home: Yes Safety Concerns: Feels Safe At This Time Smoking Status: Never smoker Hx Alcohol Use: Yes Hx Substance Use: No Review of Systems Constitutional: + anorexia; no fever and no chills Eyes: no problem reported Ear, Nose, Mouth, Throat: no problem reported Respiratory: no problem reported Cardiovascular: no chest pain, no dyspnea, no palpitations, no syncope, no edema and no problem reported Gastrointestinal: as per Subjective / HPI, + abdominal pain, + bloating, + nausea, + vomiting and + diarrhea/loose stools Genitourinary (Male): no dysuria, no urinary frequency, no hematuria and no problem reported Musculoskeletal: + back pain and + stiffness Integumentary: no problem reported Neurologic: no problem reported Psychiatric: no problem reported Endocrine: no problem reported Hematologic / Lymphatic: no problem reported Physical Exam Vital Signs (Past 24 Hours): Last Vital Signs Temp 37.0 C 10/31/18 07:39 Pulse 104 H 10/31/18 08:00 Resp 20 10/31/18 07:39 BP 111/68 10/31/18 07:39 Pulse Ox 93 10/31/18 07:39 Constitutional: well developed, + obese and + in distress; not edematous Eyes: no scleral abnormality and no corneal abnormality ENMT: Mouth: no oral mucosal abnormality and oral mucous membranes not dry Neck: normal visual inspection and + thick neck Respiratory: normal respiratory effort; no respiratory distress Auscultation: lungs clear to auscultation bilaterally Cardiovascular: Heart Sounds: normal S1 and normal S2; no murmur Vessels: no JVD Gastrointestinal (Abdomen): Inspection/Auscultation: + abdomen distended and normal bowel sounds Percussion/Palpation: + abdomen tender and + guarding Musculoskeletal: Extremities: no cyanosis and no clubbing Shoulder: no ec chymosis Skin: no rashes, warm and dry Neurologic: Motor/Sensory: no tremor and no asterixis Results & Data Laboratory Results Laboratory Results - last 24 hr 10/30/18 10/30/18 10/30/18 18:20 18:20 18:20 WBC 8.13 RBC 5.25 Hgb 16.1 POC Hgb Hct 45.1 POC Hct MCV 85.9 MCH 30.7 MCHC 35.7 RDW Std Deviation 41.9 RDW Coeff of Cruz 13.3 Plt Count 94 L MPV 10.1 Immature Gran % (Auto) 0.4 Neut % (Auto) 82.8 Lymph % (Auto) 7.5 [place] % (Auto) 9.0 Eos % (Auto) 0.1 Baso % (Auto) 0.2 Immature Gran # (Auto) 0.03 H Neut # (Auto) 6.73 H Lymph # (Auto) 0.61 L [place] # (Auto) 0.73 H Eos # (Auto) 0.01 Baso # (Auto) 0.02 Toxic Vacuolation 1+ Platelet Estimate Decreased PT 11.1 INR 1.1 APTT 30.1 PTT Ratio 1.1 POC Sodium Sodium 135 L POC Potassium Potassium 3.1 L POC Chloride Chloride 100 Carbon Dioxide 27 POC Total CO2 Anion Gap 8.0 POC Anion Gap POC BUN BUN 35 H Creatinine 1.95 H POC Creatinine Est Cr Clr Drug Dosing 62.9 Est GFR ( Amer) 46.5 Est GFR (Non-Af Amer) 40.1 BUN/Creatinine Ratio 18.0 Glucose 123 H POC Glucose (other) Calcium 8.3 L POC Ioniz Calcium Adrian Magnesium Total Bilirubin 0.8 Direct Bilirubin AST 30 ALT 38 Alkaline Phosphatase 67 Troponin I < 0.015 Total Protein 7.9 Albumin 3.3 L Globulin 4.6 H Albumin/Globulin Ratio 0.7 L Lipase 203 Urine Color Urine Appearance Urine pH Ur Specific [place] Urine Protein Urine Glucose (UA) Urine Ketones Urine Blood Urine Nitrite Urine Bilirubin Urine Urobilinogen Ur Leukocyte Esterase Urine WBC (Auto) Urine RBC (Auto) U Hyaline Cast (Auto) U Epithel Cells (Auto) Urine Bacteria (Auto) Amorphous Sediment Urine Yeast 10/30/18 10/31/18 10/31/18 18:25 00:06 01:20 WBC RBC Hgb 14.3 POC Hgb 16.7 Hct 40.8 L POC Hct 49 MCV MCH MCHC RDW Std Deviation RDW Coeff of Cruz Plt Count MPV Immature Gran % (Auto) Neut % (Auto) Lymph % (Auto) [place] % (Auto) Eos % (Auto) Baso % (Auto) Immature Gran # (Auto) Neut # (Auto) Lymph # (Auto) [place] # (Auto) Eos # (Auto) Baso # (Auto) Toxic Vacuolation Platelet Estimate PT INR APTT PTT Ratio POC Sodium 138 Sodium POC Potassium 3.2 L Potassium POC Chloride 97 L Chloride Carbon Dioxide POC Total CO2 26 Anion Gap POC Anion Gap 19.0 POC BUN 34 H BUN Creatinine POC Creatinine 1.9 H Est Cr Clr Drug Dosing Est GFR ( Amer) Est GFR (Non-Af Amer) BUN/Creatinine Ratio Glucose POC Glucose (other) 124 H Calcium POC Ioniz Calcium Adrian 1.08 L Magnesium Total Bilirubin Direct Bilirubin AST ALT Alkaline Phosphatase Troponin I Total Protein Albumin Globulin Albumin/Globulin Ratio Lipase Urine Color Yellow Urine Appearance Clear Urine pH 5.0 Ur Specific [place] > 1.045 H Urine Protein 2+ H Urine Glucose (UA) Negative Urine Ketones Trace H Urine Blood 2+ H Urine Nitrite Negative Urine Bilirubin Negative Urine Urobilinogen Negative Ur Leukocyte Esterase Negative Urine WBC (Auto) 5-10 H Urine RBC (Auto) 0-4 U Hyaline Cast (Auto) 0 U Epithel Cells (Auto) >30 H Urine Bacteria (Auto) 1+ H Amorphous Sediment Present H Urine Yeast Not Reportable 10/31/18 10/31/18 10/31/18 04:49 04:49 04:49 WBC 7.04 RBC 4.71 Hgb 13.9 L POC Hgb Hct 41.0 L POC Hct MCV 87.0 MCH 29.5 MCHC 33.9 RDW Std Deviation 43.6 RDW Coeff of Cruz 13.7 Plt Count 109 L MPV 10.4 Immature Gran % (Auto) 0.4 Neut % (Auto) 82.3 Lymph % (Auto) 7.5 [place] % (Auto) 9.7 Eos % (Auto) 0.0 Baso % (Auto) 0.1 Immature Gran # (Auto) 0.03 H Neut # (Auto) 5.79 Lymph # (Auto) 0.53 L [place] # (Auto) 0.68 H Eos # (Auto) 0.00 Baso # (Auto) 0.01 Toxic Vacuolation Platelet Estimate PT INR APTT PTT Ratio POC Sodium Sodium 137 POC Potassium Potassium 3.5 POC Chloride Chloride 104 Carbon Dioxide 26 POC Total CO2 Anion Gap 7.0 POC Anion Gap POC BUN BUN 31 H Creatinine 1.46 H D POC Creatinine Est Cr Clr Drug Dosing 84.2 Est GFR ( Amer) 65.9 Est GFR (Non-Af Amer) 56.9 BUN/Creatinine Ratio 21.4 H Glucose 125 H POC Glucose (other) Calcium 7.7 L POC Ioniz Calcium Adrian Magnesium 2.0 Total Bilirubin 0.5 Direct Bilirubin 0.1 AST 32 ALT 33 Alkaline Phosphatase 64 Troponin I Total Protein 7.0 Albumin 2.8 L Globulin Albumin/Globulin Ratio Lipase 99 Urine Color Urine Appearance Urine pH Ur Specific [place] Urine Protein Urine Glucose (UA) Urine Ketones Urine Blood Urine Nitrite Urine Bilirubin Urine Urobilinogen Ur Leukocyte Esterase Urine WBC (Auto) Urine RBC (Auto) U Hyaline Cast (Auto) U Epithel Cells (Auto) Urine Bacteria (Auto) Amorphous Sediment Urine Yeast Diagnostic Findings CT abdomen and pelvis: Enlargement of the left renal vein and relative enlargement of the left renal artery in comparison to the right renal artery. These findings are chronic. 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 No convincing evidence of a renal mass or tumor thrombus. A small renal vein thrombus may be present.
[2018-10-31 10:00] LABS: Albumin Level 2.8 gm/dl (3.4-5.0); Bilirubin Direct 0.1 mg/dl (0-0.2); Bilirubin,Total 0.5 mg/dl (0.2-1)
--- NOTE | 2018-10-31 10:56 | Ultrasound Report ---
US abdomen limited HISTORY: 48 years-old Male for intense RUQ/back pain, r/o choledocholithiasis acute right upper quad rant abdominal pain COMPARISON: CT abdomen and pelvis 10/30/2018 TECHNIQUE: Multiple real-time sonographic images of the abdominal right upper quadrant were obtained assessing grayscale appearance and color flow FINDINGS: The pancreas is mostly obscured by bowel gas. There is mildly increased echogenicity of the hepatic p arenchyma suggestive of hepatic steatosis. Ill-defined focus of decreased echogenicity is noted about the left hepatic lobe without correlate on the CT images, possibly reflective of focal fatty sparing measuring 1.4 cm. No intrahepatic biliary ductal dilation. No evidence of cirrhosis or ascites. Mild gallbladder sludge without cholelithiasis, gallbladder wall thickening or pericholecystic fluid. Sonographic Jones sign was not reported. Common bile duct is normal, 4 mm. Imaged right kidney is unremarkable without hydronephrosis. IMPRESSION: 1. Mild gallbladder sludge without cholelithiasis or sonographic evidence of acute cholecystitis. 2. No biliary ductal dilation. 3. Suggested hepatitic steatosis. The above report was generated using voice recognition software. It may contain grammatical, syntax o r spelling errors. Electronically signed by: Doyle Felipe M.D. 10/31/2018 10:54 AM
[2018-10-31 11:53] LABS: Hematocrit (blood only) 40.2 % (42-52); Hemoglobin 13.7 g/dL (14.0-18.0)
--- NOTE | 2018-10-31 13:04 | Anesthesiology Consultation ---
Date of Service October 31, 2018 Assessment & Plan (1) Encounter for pre-operative examination: Chart Review Chart Review: Acceptable Risk for Surgery and Patient NOT seen in Pre Admission Testing Consults Requested none ASA ASA2 History Surgery Operation Date: 10/31/18 08:30 Proposed Procedures p Esophagogastroduodenoscopy Dr Manzo - Adán Musa MD Height/Weight Height: 6 ft 1 in Weight: 115.6 kg Allergies Allergy/AdvReac Type Severity Reaction Status Date / Time cat dander Allergy Intermediate HIVES, Verified 10/30/18 18:52 PUFFY EYES Medications Home Medications Medication Instructions Recorded Confirmed Last Taken trazodone 100 - 200 mg PO HS 08/21/18 10/30/18 10/29/18 Active Medications Generic Name Dose Route Start Last Admin Trade Name Freq PRN Reason Stop Dose Admin Hydromorphone HCl 1 mg 10/31/18 02:01 10/31/18 10:19 Dilaudid IV 11/14/18 02:00 1 mg Q4H PRN Administration Pain Potassium Chloride 40 meq/ 1,020 mls @ 150 mls/hr 10/30/18 21:30 10/31/18 12:36 Sodium Chloride IV 10/31/18 17:53 150 mls/hr .[id number] SHANA Administration Acetaminophen 1,000 mg in 100 mls @ 400 mls/hr 10/30/18 22:10 10/31/18 12:06 Ofirmev IV 11/29/18 22:09 Infused Q8H PRN Infusion Pain or Fever Pantoprazole Sodium 40 mg/ 100 mls @ 20 mls/hr 10/30/18 23:00 10/31/18 07:44 Dextrose IV 11/29/18 22:59 8 mg/hr Q5H SHANA 20 mls/hr Administration 8 MG/HR Ceftriaxone Sodium 1,000 mg/ 60 mls @ 100 mls/hr 10/31/18 09:00 10/31/18 08:19 Dextrose IV 11/10/18 08:59 Infused DAILY SHANA Infusion Ioversol 93 ml 10/30/18 19:07 10/30/18 19:07 Optiray 320 100ml IV 11/03/18 19:06 93 ml ONCE PRN Administration Interaction Checking Past Medical History Medical History No pertinent past medical history Past Family History Family History Other Family history non-contributory Past Surgical History Surgical History No pertinent past surgical history Social History Smoking Status: Never smoker Do You Dip or Chew Tobacco: No Hx Alcohol Use: Yes Alcohol type: beer and hard liquor alcohol intake frequency: 3 or more drinks per day Alcohol Intake Frequency Comment: 2-4 beers per day Hx Substance Use: No Physical Exam Vital Signs Last Vital Signs Temp 37.3 C 10/31/18 11:48 Pulse 97 H 10/31/18 11:48 Resp 18 10/31/18 11:48 BP 119/85 10/31/18 11:48 Pulse Ox 96 10/31/18 11:48 Testing Laboratory Results 10/31/18 11:43 10/31/18 04:49 PT 11.1 Seconds (9.0-12.0) 10/30/18 18:20 INR 1.1 (0.9-1.1) 10/30/18 18:20 APTT 30.1 Seconds (21.0-31.0) 10/30/18 18:20 Urine Color Yellow 10/31/18 01:20 Urine Appearance Clear (Clear) 10/31/18 01:20 Urine pH 5.0 (4.5-7.5) 10/31/18 01:20 Ur Specific [place] > 1.045 (1.000-1.030) H 10/31/18 01:20 Urine Protein 2+ (Negative) H 10/31/18 01:20 Urine Glucose (UA) Negative (Negative) 10/31/18 01:20 Urine Ketones Trace (Negative) H 10/31/18 01:20 Urine Nitrite Negative (Negative) 10/31/18 01:20 Ur Leukocyte Esterase Negative (Negative) 10/31/18 01:20 Urine WBC (Auto) 5-10 /hpf (0-5) H 10/31/18 01:20 Urine RBC (Auto) 0-4 /hpf (0-4) 10/31/18 01:20 U Hyaline Cast (Auto) 0 /lpf (0-5) 10/31/18 01:20 U Epithel Cells (Auto) >30 /lpf (0-5) H 10/31/18 01:20 Urine Bacteria (Auto) 1+ (Negative) H 10/31/18 01:20
[2018-10-31 13:34] LABS: D Dimer 1890 ug/L FEU (0-500)
[2018-10-31] MEDS ORDERED: LIDOCAINE HCL 2% 2 ML VIAL/AMP(20MG/ML) INFIL ONE (13:34)
[2018-10-31] MEDS ORDERED: ONDANSETRON INJ 2 MG/ML 2 ML VIAL ONE (13:34)
[2018-10-31] MEDS ORDERED: MIDAZOLAM HCL 1 MG/ML 2ML VIAL ONE (13:34)
[2018-10-31] MEDS ORDERED: fentaNYL citrate 100 MCG/2 ML VIAL ONE (13:34)
[2018-10-31] MEDS ORDERED: PROPOFOL IV EMULSION 10 MG/ML 20 ML VIAL IV ONE (13:34)
[2018-10-31] MEDS ORDERED: ePHEDrine sulfate 50 MG/ML AMP IV PRN (13:39)
[2018-10-31] MEDS ORDERED: ATROPINE SULFATE 0.1 MG/ML 10ML SYR IV PRN (13:39)
--- NOTE | 2018-10-31 14:07 | Anesthesiology Progress Note ---
Date of Service October 31, 2018 Anesthesia Post Procedure Vital Signs Vital Signs: Temp Pulse Pulse Pulse Resp BP BP 10/31/18 13:25 37 C 97 H 134/80 10/31/18 11:48 37.3 C 97 H 18 119/85 10/31/18 08:00 104 H 10/31/18 07:39 37.0 C 95 H 20 111/68 10/31/18 02:11 37.7 C H 107 H 20 136/88 10/30/18 23:59 37 C 92 H 18 125/100 10/30/18 22:10 36.5 C 99 H 20 10/30/18 21:30 90 18 131/74 10/30/18 21:00 85 18 110/70 10/30/18 20:22 82 19 97/56 L 10/30/18 20:00 86 18 99/64 L 10/30/18 19:30 94 H 18 124/78 10/30/18 19:19 96 H 24 133/79 10/30/18 18:38 10/30/18 17:58 36.4 C L 101 H 18 121/75 BP Pulse Ox 10/31/18 13:25 95 10/31/18 11:48 96 10/31/18 08:00 10/31/18 07:39 93 10/31/18 02:11 96 10/30/18 23:59 95 10/30/18 22:10 132/87 98 10/30/18 21:30 10/30/18 21:00 10/30/18 20:22 10/30/18 20:00 10/30/18 19:30 97 10/30/18 19:19 96 10/30/18 18:38 97 10/30/18 17:58 100 Pain Intensity Right Abdomen: Pain Intensity: 3 Notes Mental Status: alert / awake / arousable Patient Amnestic to Procedure: Yes Nausea / Vomiting: adequately controlled Pain: adequately controlled Airway Patency, RR, SpO2: stable & adequate BP & HR: stable & adequate Hydration State: stable & adequate Anesthetic Complications: no major complications apparent and Pt Satisfied with anesthetic care
--- NOTE | 2018-10-31 14:12 | GI REPORT ---
Patient Name: Orion Luong Procedure Date: 10/31/2018 1:28 PM Date of : 1970 Admit Type: Inpatient Age: 48 Gender: Male Attending MD: Adán Musa MD Procedure: Upper GI endoscopy Providers: Adán Musa MD Referring MD: Adán Monte Indications: Coffee-ground emesis Medicines: Propofol per Anesthesia Complications: No immediate complications. Estimated blood loss: None. Estimated Blood Loss: Estimated blood loss: none. Procedure: Pre-Anesthesia Assessment: - Prior to the procedure, a History and Physical was performed, and patient medications, allergies and sensitivities were reviewed. The patient's tolerance of previous anesthesia was reviewed. - ASA Grade Assessment: II - A patient with mild systemic disease. After obtaining informed consent, the endoscope was passed under direct vision. Throughout the procedure, the patient's blood pressure, pulse, and oxygen saturations were monitored continuously. The Endoscope was introduced through the mouth, and advanced to the third part of duodenum. The upper GI endoscopy was accomplished with ease. The patient tolerated the procedure well. Findings: LA Grade D (one or more mucosal breaks involving at least 75% of esophageal circumference) esophagitis with no bleeding was found in the lower third of the esophagus. Biopsies were taken with a cold forceps for histology. The Z-line was regular and was found 38 cm from the incisors. A small hiatal hernia was present. Many non-obstructing non-bleeding superficial gastric ulcers of moderate to significant severity with no stigmata of bleeding were found in the gastric body and in the gastric antrum. The largest lesion was 7 mm in largest dimension. Biopsies were taken with a cold forceps for Helicobacter pylori testing. Scattered mild inflammation characterized by erosions was found in the duodenal bulb. Verification of patient identification for the specimens was done by the physician and nurse using the patient's name, date and medical record number. Impression: - LA Grade D reflux esophagitis. Biopsied. - Z-line regular, 38 cm from the incisors. - Small hiatal hernia. - Non-obstructing non-bleeding gastric ulcers with no stigmata of bleeding. Biopsied. - Duodenitis. Recommendation: - [facility] for [facility] care. Adán Musa M.D. Adán Musa MD 10/31/2018 2:12:10 PM This report has been signed electronically. Note Initiated On: 10/31/2018 1:28 PM Number of Addenda: 0 I attest to the content of the Intraoperative Record and orders documented therein, exceptions below {[id number]}
--- NOTE | 2018-10-31 14:52 | Hospitalist Progress Note ---
Date of Service October 31, 2018 Assessment & Plan (1) Coffee ground emesis: (2) RUQ pain: (3) Acute kidney injury: (4) Hypotension: (5) Prerenal azotemia: 48-year-old male admitted to because of possible upper GI bleeding with coffee-ground emesis Possible upper GI bleed upon admission GI input appreciated EGD was done, per report below: LA Grade D reflux esophagitis. Biopsied. - Z-line regular, 38 cm from the incisors. - Small hiatal hernia. - Non-obstructing non-bleeding gastric ulcers with no stigmata of bleeding. Biopsied. - Duodenitis. Recommendation: - Return patient to [facility] for ongoing care. 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 and relative enlargement of the left renal artery in comparison to the right renal artery, 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", nephrology input appreciated Hypotension at admission, resolved Abdominal Pain, likely from duodenitis, the Ddx: PUD, gastritis, trauma related to recent accident, acute PE, check CT angios of the chest as the above mentioned Continue Tylenol and Dilaudid for pain control, Vascular follow up would be encouraged for additional evaluation in the future if needed Hyponatremia/Hypokalemia, likely related to poor oral intake GI DVT prophylaxis covered, contraindicated for heparin product for now because of possible upper GI bleediing Subjective Patient report not feeling good right lower lung was having pain which radiation to the back, there was some mild bilateral lower extremity pain Denies fever and chill Denies nausea vomiting abdominal pain diarrhea constipation Denied palpitation or lower extremity swelling Denies facial droop or slurred speech or local weakness Denies dysuria urgency frequency Physical Exam Vital Signs (Past 24 Hours): Last Vital Signs Temp 37 C 10/31/18 13:25 Pulse 91 H 03/05/19 14:35 Resp 18 10/31/18 14:35 BP 110/65 10/31/18 14:35 Pulse Ox 94 10/31/18 14:35 Physical Exam: General Appearance: WD/WN, no apparent distress, looks sick anxious, and tired, mild obesity Eyes: normal inspection, PERRL, EOMI, sclerae normal ENT: normal ENT inspection, hearing grossly normal, pharynx normal Neck: supple, no adenopathy, thyroid normal, no JVD, no carotid bruits, trachea midline Respiratory/Chest: chest non-tender, normal breath sounds, no respiratory distress, no accessory muscle use, breath sounds, rales, wheezing Cardiovascular: regular rate, rhythm, no JVD, no murmur Abdomen: normal bowel sounds, mild tender right upper quadrant, soft, no organomegaly, Extremities: normal range of motion, non-tender, normal inspection, no pedal edema, mild calf tenderness, normal capillary refill, pelvis stable, joint has no limited range of motion, capillary refill is normal, no cyanosis clubbing 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, no motor/sensory deficits, alert, normal mood/affect, oriented x 3 Skin: normal color, warm/dry, no rash Lymphatic: no adenopathy Results & Data Laboratory Results Laboratory Results - last 24 hr 10/30/18 10/30/18 10/30/18 18:20 18:20 18:20 WBC 8.13 RBC 5.25 Hgb 16.1 POC Hgb Hct 45.1 POC Hct MCV 85.9 MCH 30.7 MCHC 35.7 RDW Std Deviation 41.9 RDW Coeff of Cruz 13.3 Plt Count 94 L MPV 10.1 Immature Gran % (Auto) 0.4 Neut % (Auto) 82.8 Lymph % (Auto) 7.5 [place] % (Auto) 9.0 Eos % (Auto) 0.1 Baso % (Auto) 0.2 Immature Gran # (Auto) 0.03 H Neut # (Auto) 6.73 H Lymph # (Auto) 0.61 L [place] # (Auto) 0.73 H Eos # (Auto) 0.01 Baso # (Auto) 0.02 Toxic Vacuolation 1+ Platelet Estimate Decreased PT 11.1 INR 1.1 APTT 30.1 PTT Ratio 1.1 D-Dimer POC Sodium Sodium 135 L POC Potassium Potassium 3.1 L POC Chloride Chloride 100 Carbon Dioxide 27 POC Total CO2 Anion Gap 8.0 POC Anion Gap POC BUN BUN 35 H Creatinine 1.95 H POC Creatinine Est Cr Clr Drug Dosing 62.9 Est GFR ( Amer) 46.5 Est GFR (Non-Af Amer) 40.1 BUN/Creatinine Ratio 18.0 Glucose 123 H POC Glucose (other) Calcium 8.3 L POC Ioniz Calcium Adrian Magnesium Total Bilirubin 0.8 Direct Bilirubin AST 30 ALT 38 Alkaline Phosphatase 67 Troponin I < 0.015 Total Protein 7.9 Albumin 3.3 L Globulin 4.6 H Albumin/Globulin Ratio 0.7 L Lipase 203 Urine Color Urine Appearance Urine pH Ur Specific [place] Urine Protein Urine Glucose (UA) Urine Ketones Urine Blood Urine Nitrite Urine Bilirubin Urine Urobilinogen Ur Leukocyte Esterase Urine WBC (Auto) Urine RBC (Auto) U Hyaline Cast (Auto) U Epithel Cells (Auto) Urine Bacteria (Auto) Amorphous Sediment Urine Yeast 10/30/18 10/31/18 10/31/18 18:25 00:06 01:20 WBC RBC Hgb 14.3 POC Hgb 16.7 Hct 40.8 L POC Hct 49 MCV MCH MCHC RDW Std Deviation RDW Coeff of Cruz Plt Count MPV Immature Gran % (Auto) Neut % (Auto) Lymph % (Auto) [place] % (Auto) Eos % (Auto) Baso % (Auto) Immature Gran # (Auto) Neut # (Auto) Lymph # (Auto) [place] # (Auto) Eos # (Auto) Baso # (Auto) Toxic Vacuolation Platelet Estimate PT INR APTT PTT Ratio D-Dimer POC Sodium 138 Sodium POC Potassium 3.2 L Potassium POC Chloride 97 L Chloride Carbon Dioxide POC Total CO2 26 Anion Gap POC Anion Gap 19.0 POC BUN 34 H BUN Creatinine POC Creatinine 1.9 H Est Cr Clr Drug Dosing Est GFR ( Amer) Est GFR (Non-Af Amer) BUN/Creatinine Ratio Glucose POC Glucose (other) 124 H Calcium POC Ioniz Calcium Adrian 1.08 L Magnesium Total Bilirubin Direct Bilirubin AST ALT Alkaline Phosphatase Troponin I Total Protein Albumin Globulin Albumin/Globulin Ratio Lipase Urine Color Yellow Urine Appearance Clear Urine pH 5.0 Ur Specific [place] > 1.045 H Urine Protein 2+ H Urine Glucose (UA) Negative Urine Ketones Trace H Urine Blood 2+ H Urine Nitrite Negative Urine Bilirubin Negative Urine Urobilinogen Negative Ur Leukocyte Esterase Negative Urine WBC (Auto) 5-10 H Urine RBC (Auto) 0-4 U Hyaline Cast (Auto) 0 U Epithel Cells (Auto) >30 H Urine Bacteria (Auto) 1+ H Amorphous Sediment Present H Urine Yeast Not Reportable 10/31/18 10/31/18 10/31/18 04:49 04:49 04:49 WBC 7.04 RBC 4.71 Hgb 13.9 L POC Hgb Hct 41.0 L POC Hct MCV 87.0 MCH 29.5 MCHC 33.9 RDW Std Deviation 43.6 RDW Coeff of Cruz 13.7 Plt Count 109 L MPV 10.4 Immature Gran % (Auto) 0.4 Neut % (Auto) 82.3 Lymph % (Auto) 7.5 [place] % (Auto) 9.7 Eos % (Auto) 0.0 Baso % (Auto) 0.1 Immature Gran # (Auto) 0.03 H Neut # (Auto) 5.79 Lymph # (Auto) 0.53 L [place] # (Auto) 0.68 H Eos # (Auto) 0.00 Baso # (Auto) 0.01 Toxic Vacuolation Platelet Estimate PT INR APTT PTT Ratio D-Dimer POC Sodium Sodium 137 POC Potassium Potassium 3.5 POC Chloride Chloride 104 Carbon Dioxide 26 POC Total CO2 Anion Gap 7.0 POC Anion Gap POC BUN BUN 31 H Creatinine 1.46 H D POC Creatinine Est Cr Clr Drug Dosing 84.2 Est GFR ( Amer) 65.9 Est GFR (Non-Af Amer) 56.9 BUN/Creatinine Ratio 21.4 H Glucose 125 H POC Glucose (other) Calcium 7.7 L POC Ioniz Calcium Adrian Magnesium 2.0 Total Bilirubin 0.5 Direct Bilirubin 0.1 AST 32 ALT 33 Alkaline Phosphatase 64 Troponin I Total Protein 7.0 Albumin 2.8 L Globulin Albumin/Globulin Ratio Lipase 99 Urine Color Urine Appearance Urine pH Ur Specific [place] Urine Protein Urine Glucose (UA) Urine Ketones Urine Blood Urine Nitrite Urine Bilirubin Urine Urobilinogen Ur Leukocyte Esterase Urine WBC (Auto) Urine RBC (Auto) U Hyaline Cast (Auto) U Epithel Cells (Auto) Urine Bacteria (Auto) Amorphous Sediment Urine Yeast 10/31/18 10/31/18 11:43 12:37 WBC RBC Hgb 13.7 L POC Hgb Hct 40.2 L POC Hct MCV MCH MCHC RDW Std Deviation RDW Coeff of Cruz Plt Count MPV Immature Gran % (Auto) Neut % (Auto) Lymph % (Auto) [place] % (Auto) Eos % (Auto) Baso % (Auto) Immature Gran # (Auto) Neut # (Auto) Lymph # (Auto) [place] # (Auto) Eos # (Auto) Baso # (Auto) Toxic Vacuolation Platelet Estimate PT INR APTT PTT Ratio D-Dimer 1890 H* POC Sodium Sodium POC Potassium Potassium POC Chloride Chloride Carbon Dioxide POC Total CO2 Anion Gap POC Anion Gap POC BUN BUN Creatinine POC Creatinine Est Cr Clr Drug Dosing Est GFR ( Amer) Est GFR (Non-Af Amer) BUN/Creatinine Ratio Glucose POC Glucose (other) Calcium POC Ioniz Calcium Adrian Magnesium Total Bilirubin Direct Bilirubin AST ALT Alkaline Phosphatase Troponin I Total Protein Albumin Globulin Albumin/Globulin Ratio Lipase Urine Color Urine Appearance Urine pH Ur Specific [place] Urine Protein Urine Glucose (UA) Urine Ketones Urine Blood Urine Nitrite Urine Bilirubin Urine Urobilinogen Ur Leukocyte Esterase Urine WBC (Auto) Urine RBC (Auto) U Hyaline Cast (Auto) U Epithel Cells (Auto) Urine Bacteria (Auto) Amorphous Sediment Urine Yeast
[2018-10-31] MEDS ORDERED: OPTIRAY 320 125ml IV PRN (14:58)
--- NOTE | 2018-10-31 15:15 | CT Scan Report ---
CT angio chest PE protocol CT DOSE: 717.24 mGy.cm HISTORY: Chest pain PE TECHNIQUE: Multiaxial CT images of the chest were performed following the intravenous administration of contrast to evaluate the pulmonary arteries. Maximal intensity projection images were also obtaine d. A dose lowering technique was utilized adhering to the principles of ALARA. COMPARISON STUDY: None. FINDINGS: The thoracic aorta is normal in course and caliber. There is mild respiratory motion artifact. No evidence for a major pulmonary embolus. Bibasilar parenchymal infiltrative change. Scattered groundglass densities in the left midlung as wel l as anterior aspect left upper lobe. An additional pulmonary procedure clear. Right perihilar ground glass density measures 1.7 cm. Anterior aspect lingula nodule measures 1.8 cm. Mildly densities are i dentified in the left lung base. IMPRESSION: 1. Study is negative for pulmonary embolus. 2. Scattered groundglass parenchymal nodular-type densities scattered throughout both lungs as discus sed. 3. These may be inflammatory, although a repeat study in a later date is recommended to exclude any p ossibility of residual nodularity. The above report was generated using voice recognition software. It may contain grammatical, syntax or spelling errors. Electronically signed by: Scott Chao M.D. 10/31/2018 3:13 PM
--- NOTE | 2018-10-31 15:28 | Ultrasound Report ---
US venous doppler LE BI HISTORY: Pain. Edema. ? PE, DVT. Legs numb and pain COMPARISON STUDY: None. FINDINGS: There is normal compressibility, flow, and augmentation within the bilateral lower extremit y deep venous systems. IMPRESSION: No DVT within the right or left lower extremity. The above report was generated using voice recognition software. It may contain grammatical, syntax or spelling errors. Electronically signed by: Scott Chao M.D. 10/31/2018 3:27 PM
[2018-10-31] MEDS: SODIUM CHLORIDE 0.9% 1000ML 1,000 ML IV SCH ×2 (16:00→21:47)
[2018-10-31] MEDS: SUCRALFATE 1 GM/10 ML UDC PO SCH ×2 (16:07→21:47)
[2018-10-31 18:10] LABS: Hemoglobin 13.3 g/dL (14.0-18.0)
[2018-10-31] MEDS ORDERED: KETOROLAC 30 MG/ML VIAL IV PRN (18:24)
[2018-11-01] MEDS: PANTOprazole 40 MG in DEXTROSE 5% 100 ML IV SCH ×3 (02:30→15:35)
[2018-11-01] MEDS: TRAZODONE HCL 100 MG TAB PO SCH ×2 (02:48→22:03)
[2018-11-01] MEDS: HYDROmorphone INJ 1 MG/ML SYRINGE IV PRN (04:26)
[2018-11-01] MEDS: ACETAMINOPHEN 1,000 MG/100 ML VIAL IV PRN (04:28)
[2018-11-01] MEDS: SODIUM CHLORIDE 0.9% 1000ML 1,000 ML IV SCH ×2 (04:29→15:36)
[2018-11-01 05:55] LABS: BUN Creatinine Ratio 18.4 (10-20); Calcium 7.4 mg/dl (8.5-10.1); Est GFR (Non-African American) 75.1; Potassium 3.3 mmol/L (3.5-5.1)
[2018-11-01 05:56] LABS: Phosphorus 2.1 mg/dl (2.5-4.9)
[2018-11-01] MEDS ORDERED: POTASSIUM CHLORIDE 10 MEQ TABCR PO STA (07:34)
[2018-11-01] MEDS: SUCRALFATE 1 GM/10 ML UDC PO SCH ×4 (08:12→22:03)
[2018-11-01] MEDS: cefTRIAXone SODIUM 1,000 MG in DEXTROSE 5% 50 ML IV SCH (08:12)
--- NOTE | 2018-11-01 08:20 | Nephrology Progress Note ---
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 Afebrile. Tolerating clear liquids. Some right upper quadrant pain persists. Denies pleuritic pain. Denies dyspnea. Tenderness in the epigastric area noted. Symptoms are improving. No vomiting or diarrhea. EGD completed yesterday without complications. Duodenitis was noted as well as mild esophagitis and several scattered non-bleeding gastric ulcers. Pathology pending. CTA chest obtained yesterday was reviewed this morning. No PE. D dimer elevated. RUQ also reviewed. Review of Systems All systems reviewed & are unremarkable except as noted in HPI & below Physical Exam Vital Signs (Past 24 Hours): Last Vital Signs Temp 36.4 C L 11/01/18 07:33 Pulse 88 11/01/18 07:33 Resp 20 11/01/18 07:33 BP 120/71 11/01/18 07:33 Pulse Ox 97 11/01/18 07:33 Constitutional: well developed and + obese; not in distress and not edematous Eyes: no scleral abnormality and no corneal abnormality ENMT: Mouth: no oral mucosal abnormality and oral mucous membranes not dry Neck: normal visual inspection and + thick neck Respiratory: normal respiratory effort; no respiratory distress Auscultation: lungs clear to auscultation bilaterally Cardiovascular: Heart Sounds: normal S1 and normal S2; no murmur Vessels: no JVD Gastrointestinal (Abdomen): Inspection/Auscultation: + abdomen distended and normal bowel sounds Percussion/Palpation: + abdomen tender; no guarding Musculoskeletal: Extremities: no cyanosis and no clubbing Shoulder: no ecchymosis Skin: no rashes, warm and dry Neurologic: Motor/Sensory: no tremor and no asterixis Results & Data Laboratory Results Laboratory Results - last 24 hr 10/31/18 10/31/18 10/31/18 04:49 11:43 12:37 Hgb 13.7 L Hct 40.2 L D-Dimer 1890 H* Sodium Potassium Chloride Carbon Dioxide Anion Gap BUN Creatinine Est Cr Clr Drug Dosing Est GFR ( Amer) Est GFR (Non-Af Amer) BUN/Creatinine Ratio Glucose Calcium Phosphorus Magnesium Total Bilirubin 0.5 Direct Bilirubin 0.1 AST 32 ALT 33 Alkaline Phosphatase 64 Total Protein 7.0 Albumin 2.8 L Lipase 99 10/31/18 11/01/18 17:46 05:26 Hgb 13.3 L Hct 39.0 L D-Dimer Sodium 133 L Potassium 3.3 L Chloride 103 Carbon Dioxide 23 Anion Gap 7.0 BUN 21 H Creatinine 1.16 D Est Cr Clr Drug Dosing 106.0 Est GFR ( Amer) 87.0 Est GFR (Non-Af Amer) 75.1 BUN/Creatinine Ratio 18.4 Glucose 139 H Calcium 7.4 L Phosphorus 2.1 L Magnesium 2.0 Total Bilirubin Direct Bilirubin AST ALT Alkaline Phosphatase Total Protein Albumin Lipase
[2018-11-01 09:03] LABS: Influenza A virus by PCR Neg for Influ A (Neg); Influenza B virus by PCR Neg for Influ B (Neg)
--- NOTE | 2018-11-01 09:47 | Gastroenterology Progress Note ---
Date of Service November 01, 2018 Assessment & Plan (1) Esophagitis: Will need PPI drip for 1-2 more days. Can advance diet to full liquids today. Can decrease Hb/Hct to daily. Will await gastric level results. Will continue to follow. Present on Admission?: Yes (2) Gastric ulcer: Supervising Physician Co-Signing Physician Notes I have performed a history and physical examination of this patient and reviewed the electronic medical record. Specifically, on physical examination there is mild epigastric tenderness. I have discussed the case with ALISSA Garcia. The above note reflects my findings, conclusions, and recommendations. Adán Musa MD Subjective Review of Systems (since admission): Mr. Orion Luong is a 48 yr old male who was admitted late on 10/30 for upper abdomen pain in the setting of an acute febrile illness with nausea/vomiting/diarrhea. Since admission: nausea/vomiting/diarrhea has resolved. No fevers for > 2 days. Hb 16->13. EGD yesterday with grade D esophagitis, multiple non bleeding gastric ulcers largest 7mm size. Constitutional: + body aches (improved joint pain) and + fatigue; no fever and no chills Eyes: no problem reported Ear, Nose, Mouth, Throat: no mouth lesions, no sore throat and no pain with swallowing Respiratory: no cough, no chest congestion and no dyspnea Cardiovascular: as per Subjective / HPI and + dyspnea on exertion (resolved); no chest pain Gastrointestinal: + abdominal pain (improved); no nausea, no vomiting and no coffee ground emesis Musculoskeletal: as per Subjective / HPI, + back pain (improved) and + joint pain (improved) Integumentary: no rash and no lesions Neurologic: no gait abnormality, no unsteadiness and no syncope Psychiatric: + change in appetite; no depression and no hopelessness Endocrine: + fatigue Physical Exam Vital Signs (Past 24 Hours): Last Vital Signs Temp 36.4 C L 11/01/18 07:33 Pulse 88 11/01/18 07:33 Resp 20 11/01/18 07:33 BP 120/71 11/01/18 07:33 Pulse Ox 97 11/01/18 07:33 Constitutional: WD/WN, vitals as above well developed, well nourished, + acute distress and cooperative resting comfortably Eyes: PERRL, conjunctivae normal, anicteric sclerae ENMT: external ear and nose normal, oropharynx normal Neck: trachea midline, no thyromegaly Respiratory: normal respiratory effort, lungs clear to auscultation Gastrointestinal (Abdomen): Inspection/Auscultation: + abdominal wall ecchymosis; abdomen not distended and no abdominal edema Percussion/Palpation: + abdomen tender (RUQ /epigastric area) and abdomen soft; no ascites Skin: no rashes, warm and dry Neurologic: PERRL, EOMI, accommodation nl, no face palsy, no dysarthria Psychiatric: A+Ox3, euthymic affect Lymphatic: no cervical or axillary lymphadenopathy Results & Data Laboratory Results Hb 13, BUN 23. Diagnostic Findings CT 10/30/18: 1. No acute intra-abdominal injury. 2. 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 These findings are chronic. 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 No convincing evidence of a renal mass or tumor thrombus. A small renal vein thro mbus may be present. Vascular surgery or interventional radiology consultation for angiographic evaluation recommended on a nonemergent basis. No evidence of hemorrhage or other acute pathology related to this finding.
[2018-11-01] MEDS ORDERED: ACETAMINOPHEN SOL 650 MG/20.3 ML UDC PO PRN (10:28)
[2018-11-01] MEDS ORDERED: TRAMADOL HCL 50 MG TABLET ONE (10:50)
--- NOTE | 2018-11-01 13:23 | XRay Report ---
THORACIC SPINE 3 VIEWS CLINICAL HISTORY: Thoracic back pain. FINDINGS: AP, lateral, and swimmer's views of the thoracic spine are correlated with CT scan of the c hest dated 10/31/2018. The skeletal structures are well mineralized. There is no radiographic evidence of fracture or malalignment. Vertebral body height and alignment are maintained throughout the thorac ic spine. Small anterior osteophytes are seen throughout. The disc spaces are preserved. The transver se processes and pedicles are grossly intact as seen on the frontal view. Minimal thoracic dextrocurv ature is noted. Bibasilar airspace opacities are unchanged. IMPRESSION: No bony abnormality is identified involving the thoracic spine. Electronically signed by: Vance Saucedo M.D. 11/01/2018 1:22 PM
[2018-11-01] MEDS: DOCUSATE SODIUM 100 MG CAP PO SCH ×2 (13:57→22:03)
--- NOTE | 2018-11-01 15:12 | Hospitalist Progress Note ---
Date of Service November 01, 2018 Assessment & Plan (1) Upper GI bleed: (2) Abdominal pain: (3) Acute kidney injury: (4) Renal arteriovenous fistula: (5) Pneumonia: (6) Gastric ulcer: (7) Esophagitis: 48-year-old male admitted to because of possible upper GI bleeding with coffee-ground emesis Possible upper GI bleed upon admission Esophagitis: GI input appreciated EGD was done, per report below: LA Grade D reflux esophagitis. Biopsied. - Z-line regular, 38 cm from the incisors. - Small hiatal hernia. - Non-obstructing non-bleeding gastric ulcers with no stigmata of bleeding. Biopsied. - Duodenitis. Talk to GI, okay to switch to oral Protonix twice daily, continue full liquids today. 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 and relative enlargement of the left renal artery in comparison to the right renal artery, 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", nephrology input appreciated Hypotension at admission, resolved Hyponatremia/Hypokalemia, likely related to poor oral intake GI DVT prophylaxis covered, contraindicated for heparin product for now because of possible upper GI bleediing Continue antibiotic, follow-up culture, treat pneumonia, continue PPI for esophagitis, , and may be discharge in 1 or 2 days more Subjective Yesterday patient reported right lower lung was having pain which radiation to the back, Today report right middle back pain Last night developed spiking fever , blood culture was sent Today start tolerate clear liquid diet Denies nausea vomiting abdominal pain diarrhea constipation Denied palpitation or lower extremity swelling Denies facial droop or slurred speech or local weakness Denies dysuria urgency frequency Physical Exam Vital Signs (Past 24 Hours): Last Vital Signs Temp 36.5 C 11/01/18 11:19 Pulse 95 H 11/01/18 11:19 Resp 24 11/01/18 11:19 BP 152/84 H 11/01/18 11:19 Pulse Ox 97 11/01/18 11:19 Physical Exam: general Appearance: WD/WN, no apparent distress, looks better than yesterday, and tired, mild obesity Eyes: normal inspection, PERRL, EOMI, sclerae normal ENT: normal ENT inspection, hearing grossly normal, pharynx normal Neck: supple, no adenopathy, thyroid normal, no JVD, no carotid bruits, trachea midline Respiratory/Chest: chest non-tender, normal breath sounds, no respiratory distress, no accessory muscle use, breath sounds, rales, wheezing Cardiovascular: regular rate, rhythm, no JVD, no murmur Abdomen: normal bowel sounds, mild tender right upper quadrant, soft, no organomegaly, Extremities: Mid spine right paraspinal area muscle tightness, report obvious pain when moved bodies in the upper back no pedal edema, mild calf tenderness, normal capillary refill, pelvis stable, joint has no limited range of motion, capillary refill is normal, no cyanosis clubbing Neurologic/Psychiatric: bulk picker II-XII nml as tested, no motor/sensory deficits, al ert, normal mood/affect, oriented x 3 Skin: normal color, warm/dry, no rash Lymphatic: no adenopathy Results & Data Laboratory Results Laboratory Results - last 24 hr 10/31/18 11/01/18 11/01/18 17:46 05:26 07:48 Hgb 13.3 L Hct 39.0 L ESR 66 H Sodium 133 L Potassium 3.3 L Chloride 103 Carbon Dioxide 23 Anion Gap 7.0 BUN 21 H Creatinine 1.16 D Est Cr Clr Drug Dosing 106.0 Est GFR ( Amer) 87.0 Est GFR (Non-Af Amer) 75.1 BUN/Creatinine Ratio 18.4 Glucose 139 H Calcium 7.4 L Phosphorus 2.1 L Magnesium 2.0 C-Reactive Protein Procalcitonin Influenza Type A (PCR) Influenza Type B (PCR) 11/01/18 11/01/18 11/01/18 07:48 07:48 08:15 Hgb Hct ESR Sodium Potassium Chloride Carbon Dioxide Anion Gap BUN Creatinine Est Cr Clr Drug Dosing Est GFR ( Amer) Est GFR (Non-Af Amer) BUN/Creatinine Ratio Glucose Calcium Phosphorus Magnesium C-Reactive Protein 25.70 H Procalcitonin 1.42 H Influenza Type A (PCR) Neg for Influ A Influenza Type B (PCR) Neg for Influ B Microbiology 10/31/18 01:20 Urine,Clean Catch Urine Culture - Preliminary No growth - Less than 1,000 colonies/mL, Final report to follow. (1) Abdominal pain Abdominal location: unspecified location Qualified Code(s): R10.9 - Unspecified abdominal pain
[2018-11-01] MEDS: ALBUT/IPRATROP 3MG/0.5MG NEB 3 ML VIAL NEB SCH ×2 (15:37→18:49)
[2018-11-01] MEDS: TRAMADOL HCL 50 MG TABLET PO PRN (15:41)
[2018-11-01] MEDS ORDERED: cefTRIAXone SODIUM 1,000 MG in DEXTROSE 5% 50 ML IV SCH (16:00)
[2018-11-01 16:14] LABS: Lyme Ab IgG w/WB Rflx Negative (Negative); Lyme Ab IgM w/WB Rflx Negative (Negative)
[2018-11-01] MEDS: AZITHROMYCIN 500 MG in DEXTROSE 5% 250 ML IV SCH (16:35)
[2018-11-01] MEDS: PANTOprazole 40 MG TAB PO SCH (22:03)
[2018-11-02] MEDS: ACETAMINOPHEN 1,000 MG/100 ML VIAL IV PRN (01:57)
[2018-11-02] MEDS: ALBUT/IPRATROP 3MG/0.5MG NEB 3 ML VIAL NEB SCH ×3 (07:10→15:47)
[2018-11-02 07:49] LABS: BUN Creatinine Ratio 13.2 (10-20); Calcium 8.3 mg/dl (8.5-10.1); Creatinine Clr Calc Pharmacy 135.1 ml/min; Est GFR (African American) 116.7; Est GFR (Non-African American) 100.7; Magnesium 2.4 mg/dl (1.8-2.4); Phosphorus 2.4 mg/dl (2.5-4.9); Potassium 3.3 mmol/L (3.5-5.1)
[2018-11-02] MEDS: DOCUSATE SODIUM 100 MG CAP PO SCH ×3 (07:58→20:54)
[2018-11-02] MEDS: cefTRIAXone SODIUM 1,000 MG in DEXTROSE 5% 50 ML IV SCH (07:59)
[2018-11-02] MEDS: PANTOprazole 40 MG TAB PO SCH ×2 (07:59→20:54)
[2018-11-02] MEDS: SUCRALFATE 1 GM/10 ML UDC PO SCH ×4 (07:59→20:53)
[2018-11-02] MEDS: TRAMADOL HCL 50 MG TABLET PO PRN (08:05)
[2018-11-02] MEDS ORDERED: VANCOMYCIN CONSULT ACTIVE PRN (08:55)
[2018-11-02] MEDS ORDERED: POTASSIUM CHLORIDE 20 MEQ TABCR PO STA (08:59)
[2018-11-02 09:15] LABS: Basophils # (auto) 0.02 K/uL (0-0.2); Basophils % (auto) 0.2 %; Eosinophils # (auto) 0.09 K/uL (0-0.5); Eosinophils % (auto) 0.9 %; Hematocrit (blood only) 37.3 % (42-52); Hemoglobin 12.7 g/dL (14.0-18.0); Immature Granulocytes # (auto) 0.23 K/uL (0.00-0.02); Immature Granulocytes % (auto) 2.2 %; Lymphocytes # (auto) 1.05 K/uL (1.2-3.4); Mean Corpuscular Volume 86.9 fL (80-100); Mean Platelet Volume 10.2 fL (7.4-10.4); Monocytes # (auto) 1.37 K/uL (0.11-0.59); Neutrophils # (auto) 7.79 K/uL (1.4-6.5); Neutrophils % (auto) 73.7 %; Platelet Count 136 K/uL (130-400); RDW Coefficient of Variation 14.2 % (11.5-14.5); RDW Standard Deviation 44.6 fL (36.4-46.3); Red Blood Count 4.29 M/uL (4.7-6.1); White Blood Count 10.55 K/uL (4.8-10.8)
[2018-11-02] MEDS: KETOROLAC TROMETHAMINE 15 MG/ML VIAL IV PRN ×2 (10:10→18:35)
--- NOTE | 2018-11-02 10:33 | Nephrology Progress Note ---
Date of Service November 02, 2018 Assessment & Plan (1) RUQ pain: -- EGD demonstrated non-bleeding gastric ulcers as well as duodenitis, and mild esophagitis. -- Pathology consistent with reactive gastropathy; H pylori negative. -- Symptoms atypical for anything related to L renal AVF. 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 -- Patient's symptoms are very atypical for anything related to this finding. -- Exam is not consistent with acute decompensated CHF (i.e. lungs clear, cardiac sounds normal, no JVD). However, I cannot completely exclude given lower extremity edema. -- As patient remains hospitalized with no apparent improvement in symptomatology, a vascular surgery consultation would be appreciated and this has been requested. -- Symptoms are right sided and not left and patient has not had hematuria -- The CT on admission was notable for possible small non-occlusive thrombus. CTA chest was negative. Anticoagulation deferred due to hematemesis on admission and uncertain finding. (3) Prerenal azotemia: -- Improved. -- Volume status acceptable. -- Tolerating PO fluids. Subjective Orion states that his back pain has increased significantly overnight. He was very agitated this morning. He was sitting upright in chair. He is very upset. Abdominal pain improved but some right sided tenderness persists. He is no longer endorsing nausea, vomiting or diarrhea. He reports increasing right sided lower back pain. He has paraspinal tenderness as well as SI tenderness. The patient prevents him from standing, walking or laying flat. He denies dyspnea. Renato has had a notable increase in bilateral lower extremity edema over the past 24 hours. EGD patient consistent with reactive gastropathy. No cancer. No H pylori. Thoracic X-ray obtained yesterday did not reveal any bony pathology. Review of Systems All systems reviewed & are unremarkable except as noted in HPI & below Physical Exam Vital Signs (Past 24 Hours): Last Vital Signs Temp 36.5 C 11/02/18 08:19 Pulse 90 11/02/18 08:19 Resp 18 11/02/18 08:19 BP 146/91 H 11/02/18 08:19 Pulse Ox 96 11/02/18 08:19 Constitutional: well developed, + obese, + in distress and + edematous Eyes: no scleral abnormality and no corneal abnormality ENMT: Mouth: no oral mucosal abnormality and oral mucous membranes not dry Neck: normal visual inspection and + thick neck Respiratory: normal respiratory effort; no respiratory distress Auscultation: lungs clear to auscultation bilaterally Cardiovascular: Heart Sounds: normal S1 and normal S2; no murmur Vessels: no JVD Gastrointestinal (Abdomen): Inspection/Auscultation: + abdomen distended and normal bowel sounds Percussion/Palpation: + abdomen tender; no guarding Musculoskeletal: Extremities: no cyanosis and no clubbing Shoulder: no ecchymosis Skin: no rashes, warm and dry Neurologic: Motor/Sensory: no tremor and no asterixis Psychiatric: Affect: + angry affect Results & Data Laboratory Results Laboratory Results - last 24 hr 11/01/18 11/01/18 11/02/18 07:48 07:48 06:42 WBC RBC Hgb Hct MCV MCH MCHC RDW Std Deviation RDW Coeff of Cruz Plt Count MPV Immature Gran % (Auto) Neut % (Auto) Lymph % (Auto) [place] % (Auto) Eos % (Auto) Baso % (Auto) Immature Gran # (Auto) Neut # (Auto) Lymph # (Auto) [place] # (Auto) Eos # (Auto) Baso # (Auto) Sodium 131 L Potassium 3.3 L Chloride 99 Carbon Dioxide 27 Anion Gap 5.0 BUN 12 Creatinine 0.91 Est Cr Clr Drug Dosing 135.1 Est GFR ( Amer) 116.7 Est GFR (Non-Af Amer) 100.7 BUN/Creatinine Ratio 13.2 Glucose 129 H Calcium 8.3 L Phosphorus 2.4 L Magnesium 2.4 Lyme Disease IgG Ab Negative Lyme Disease IgM Ab Negative Bld Cult Staph aureus PCR Positive A Blood Culture MRSA PCR Negative 11/02/18 06:42 WBC 10.55 RBC 4.29 L Hgb 12.7 L Hct 37.3 L MCV 86.9 MCH 29.6 MCHC 34.0 RDW Std Deviation 44.6 RDW Coeff of Cruz 14.2 Plt Count 136 MPV 10.2 Immature Gran % (Auto) 2.2 Neut % (Auto) 73.7 Lymph % (Auto) 10.0 [place] % (Auto) 13.0 Eos % (Auto) 0.9 Baso % (Auto) 0.2 Immature Gran # (Auto) 0.23 H Neut # (Auto) 7.79 H Lymph # (Auto) 1.05 L [place] # (Auto) 1.37 H Eos # (Auto) 0.09 Baso # (Auto) 0.02 Sodium Potassium Chloride Carbon Dioxide Anion Gap BUN Creatinine Est Cr Clr Drug Dosing Est GFR ( Amer) Est GFR (Non-Af Amer) BUN/Creatinine Ratio Glucose Calcium Phosphorus Magnesium Lyme Disease IgG Ab Lyme Disease IgM Ab Bld Cult Staph aureus PCR Blood Culture MRSA PCR
[2018-11-02] MEDS: LIDOCAINE 5% 1 PATCH TD SCH (12:19)
[2018-11-02] MEDS: MoRPHine SULFATE 4 MG/ML 1 ML CARP\\VIAL IV PRN (16:26)
[2018-11-02] MEDS: AZITHROMYCIN 500 MG in DEXTROSE 5% 250 ML IV SCH (16:29)
[2018-11-02] MEDS ORDERED: ALBUT/IPRATROP 3MG/0.5MG NEB 3 ML VIAL NEB PRN (16:47)
--- NOTE | 2018-11-02 19:09 | Hospitalist Progress Note ---
Date of Service November 02, 2018 Assessment & Plan (1) Upper GI bleed: Scabs appreciated, results noted. Pathology still pending. Continue PPI. Hemoglobin stable. (2) Abdominal pain: Likely related to above, seems to be improving (3) Acute kidney injury: Improved, follow (4) Renal arteriovenous fistula: (5) Pneumonia: Is already on Zithromax Rocephin, he has gram-positive bacteremia (see below) (6) Gastric ulcer: PPI (7) Esophagitis: PPI (8) Gram-positive bacteremia: Appears on early serologies this will be MSSA, he does show distal signs of bacteremia with the spots on his legs. Echocardiogram ordered, continue Rocephin pending final sensitivities. Will likely need assistance from infectious disease in regards to a LENORE should the echo be negative, repeat blood cultures ordered as well. Discussed with patient and in depth (9) Back pain: Seems to be related to the pneumonia. Escalate pain control, lidocaine patch (10) Hypotension: (11) Hyponatremia: (12) DVT prophylaxis: ambulation Physical Exam Vital Signs (Past 24 Hours): Last Vital Signs Temp 37.2 C 11/02/18 14:52 Pulse 85 11/02/18 15:48 Resp 18 11/02/18 15:48 BP 139/82 11/02/18 14:52 Pulse Ox 97 11/02/18 15:48 (1) Abdominal pain Abdominal location: unspecified location Qualified Code(s): R10.9 - Unspecified abdominal pain (2) Back pain Back pain laterality: unspecified Back pain location: back pain in unspecified location Chronicity: unspecified Qualified Code(s): M54.9 - Dorsalgia, unspecified
[2018-11-02] MEDS: TRAZODONE HCL 100 MG TAB PO SCH (20:54)
[2018-11-03] MEDS: KETOROLAC TROMETHAMINE 15 MG/ML VIAL IV PRN ×4 (00:31→18:43)
[2018-11-03] MEDS: TRAMADOL HCL 50 MG TABLET PO PRN (03:32)
[2018-11-03] MEDS: MoRPHine SULFATE 4 MG/ML 1 ML CARP\\VIAL IV PRN ×4 (03:33→23:30)
[2018-11-03 06:39] LABS: BUN Creatinine Ratio 13.5 (10-20); Calcium 7.8 mg/dl (8.5-10.1); Creatinine Clr Calc Pharmacy 132.2 ml/min; Est GFR (African American) 113.7; Est GFR (Non-African American) 98.1; Potassium 3.4 mmol/L (3.5-5.1)
[2018-11-03] MEDS: POLYETHYLENE (MIRALAX) 17 GM PACK PO PRN (07:52)
[2018-11-03] MEDS: DOCUSATE SODIUM 100 MG CAP PO SCH ×3 (07:52→20:35)
[2018-11-03] MEDS: PANTOprazole 40 MG TAB PO SCH ×2 (07:52→20:38)
[2018-11-03] MEDS: SUCRALFATE 1 GM/10 ML UDC PO SCH ×4 (07:53→20:34)
[2018-11-03] MEDS: LIDOCAINE 5% 1 PATCH TD SCH ×2 (07:54→13:13)
--- NOTE | 2018-11-03 08:51 | Infectious Disease Consult ---
Date of Consultation November 03, 2018 Assessment & Plan (1) Staphylococcus aureus sepsis: 48-year-old previously healthy male with staph aureus bacteremia, no obvious underlying source. I am concerned about the possibility of early disc space infection in the lower thoracic spine, and certainly there is concern about possibility of endocarditis, especially left-sided given possible embolic skin lesions. Patient has been changed to IV cefazolin for now, will order MRI of the thoracic spine to further evaluate. Will likely need LENORE. Would obtain follow-up blood cultures to ensure clearance of bacteremia. Will discuss with all involved. Will follow. History of Present Illness Reason for Consultation: Gram-positive bacteremia,? LENORE Attending Physician: Janusz Yeung, DO History of Present Illness 48-year-old male in prior good health was well until late last week when he had the onset of nausea, vomiting, abdominal and back pain, along with fever and shaking chills. He noted coffee-ground emesis, and was admitted for GI bleeding and further management. He underwent endoscopy with finding of no active bleeding, some gastritis, but now blood cultures have returned positive for methicillin sensitive staph aureus. Patient currently being treated with IV ceftriaxone, thinks that pain has improved somewhat. Pain currently 3 out of 10 in intensity right thoracic paraspinal area. Currently afebrile with normal white count. Transthoracic echocardiogram unrevealing. X-ray of the thoracic spine does not show any obvious bony abnormalities. Denies any recent skin or soft tissue infections. Allergies Allergy/AdvReac Type Severity Reaction Status Date / Time cat dander Allergy Intermediate HIVES, Verified 10/30/18 18:52 PUFFY EYES Home Medications Home Medications Medication Instructions Recorded Confirmed Type trazodone 100 - 200 mg PO HS 08/21/18 10/30/18 History Patient History Medical History No pertinent past medical history Surgical History No pertinent past surgical history Family History Other Family history non-contributory Social History Communication Ability: Effective Beliefs That Will Affect Care: None Current Living Situation: Spouse Other Information That Helps Us Care for You: No Feels Safe at Home: Yes Safety Concerns: Feels Safe At This Time Smoking Status: Never smoker Hx Alcohol Use: Yes Hx Substance Use: No Review of Systems All systems were reviewed and are negative except as per HPI Physical Exam Vital Signs (Past 24 Hours): Last Vital Signs Temp 36.8 C 11/03/18 03:40 Pulse 84 11/03/18 03:40 Resp 18 11/03/18 03:40 BP 152/90 H 11/03/18 03:40 Pulse Ox 98 11/03/18 03:40 Constitutional: WD/WN, vitals as above comfortable; no acute distress Eyes: PERRL, conjunctivae normal, anicteric sclerae ENMT: external ear and nose normal, oropharynx normal Neck: trachea midline, no thyromegaly neck nontender Respiratory: normal respiratory effort, lungs clear to auscultation normal percussion; does not use accessory muscles Cardiovascular: Rate/Rhythm: regular rate and regular rhythm Heart Sounds: normal S1 and normal S2; no gallop, no murmur and no cardiac rub Vessels: normal peripheral pulses; no JVD Gastrointestinal (Abdomen): normal bowel sounds, soft, nontender, no hepatosplenomegaly Musculoskeletal: no cyanosis or clubbing, extremities motor strength 5/5 Spine: thoracic spine normal to inspection and lumbar spine normal to inspection; no cervical spinal tenderness Skin: normal turgor; no rashes Multiple erythematous papules on lower extremities Neurologic: patellar DTR's 2+ bilat, sensation intact no focal motor deficits Psychiatric: A+Ox3, euthymic affect Orientation: cooperative Lymphatic: no cervical or axillary lymphadenopathy no inguinal lymphadenopathy Results & Data Laboratory Results Short CBC 11/02/18 Range/Units 06:42 WBC 10.55 (4.8-10.8) K/uL Hgb 12.7 L (14.0-18.0) g/dL Hct 37.3 L (42-52) % Plt Count 136 (130-400) K/uL BMP 11/03/18 05:35 Sodium 132 L Potassium 3.4 L Chloride 98 Carbon Dioxide 28 BUN 13 Creatinine 0.93 Glucose 115 H Calcium 7.8 L Diagnostic Findings Microbiology 11/01/18 07:59 Blood Blood Culture - Preliminary Staphylococcus aureus 11/01/18 07:48 Blood Blood Culture - Preliminary Staphylococcus aureus 11/02/18 09:44 Blood Blood Culture - Preliminary Gram positive cocci 10/31/18 01:20 Urine,Clean Catch Urine Culture - Final No growth - less than 1,000 colonies/mL. CT angio chest PE protocol CT DOSE: 717.24 mGy.cm HISTORY: Chest pain PE TECHNIQUE: Multiaxial CT images of the chest were performed following the intravenous administration of contrast to evaluate the pulmonary arteries. Maximal intensity projection images were also obtained. A dose lowering technique was utilized adhering to the principles of ALARA. COMPARISON STUDY: None. FINDINGS: The thoracic aorta is normal in course and caliber. There is mild respiratory motion artifact. No evidence for a major pulmonary embolus. Bibasilar parenchymal infiltrative change. Scattered groundglass densities in the left midlung as well as anterior aspect left upper lobe. An additional pulmonary procedure clear. Right perihilar groundglass density measures 1.7 cm. Anterior aspect lingula nodule measures 1.8 cm. Mildly densities are identified in the left lung base. IMPRESSION: 1. Study is negative for pulmonary embolus. 2. Scattered groundglass parenchymal nodular-type densities scattered throughout both lungs as discussed. 3. These may be inflammatory, although a repeat study in a later date is terri mmended to exclude any possibility of residual nodularity. The above report was generated using voice recognition software. It may contain grammatical, syntax or spelling errors. Electronically signed by: Scott Chao M.D. 10/31/2018 3:13 PM Dictated: 10/31/18 1508 Transcribed: 10/31/18 1508
[2018-11-03] MEDS: cefTRIAXone SODIUM 1,000 MG in DEXTROSE 5% 50 ML IV SCH (09:01)
[2018-11-03] MEDS ORDERED: POTASSIUM CHLORIDE 10 MEQ TABCR PO STA (09:18)
[2018-11-03] MEDS: CEFAZOLIN 2000MG 2,000 MG/15 ML SYR IV SCH ×2 (09:50→18:38)
--- NOTE | 2018-11-03 10:22 | Nephrology Progress Note ---
Date of Service November 03, 2018 Assessment & Plan (1) Gram-positive bacteremia: -- Blood cultures 11/01 & 11/02 + for MRSA -- Echocardiogram 11/02 was negative for valvular abnormality -- ID recommendations reviewed. Patient is currently on Cefazolin and Azithromycin. Culture sensitivities are pending. Spinal MRI has been ordered to assess for discitis/abscess. Patient may require LENORE (2) RUQ pain: -- EGD demonstrated non-bleeding gastric ulcers as well as duodenitis, and mild esophagitis. -- Pathology consistent with reactive gastropathy; H pylori negative. -- Symptoms atypical for anything related to L renal AVF. 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 -- Patient's symptoms are very atypical for anything related to this finding. -- Creatinine is stable at 0.9. Urine sediment was without blood -- Vascular surgery has been consulted. Await their input Subjective Mr. Luong was seen & examined in his hospital room this morning. He reports that he has persistent back discomfort and has been scheduled for an MRI. He currently denies fever, dysuria or gross hematuria. Physical Exam Vital Signs (Past 24 Hours): Last Vital Signs Temp 36.8 C 11/03/18 03:40 Pulse 84 11/03/18 03:40 Resp 18 11/03/18 03:40 BP 152/90 H 11/03/18 03:40 Pulse Ox 98 11/03/18 03:40 Eyes: PERRL, conjunctivae normal, anicteric sclerae Neck: trachea midline, no thyromegaly Respiratory: normal respiratory effort, lungs clear to auscultation Cardiovascular: Rate/Rhythm: regular rate and regular rhythm Heart Sounds: no murmur Extremities: + edema (1+ pretibial pitting edema) Gastrointestinal (Abdomen): normal bowel sounds, soft, nontender, no hepatosplenomegaly Results & Data Laboratory Results Laboratory Tests 11/02/18 11/03/18 06:42 05:35 WBC 10.55 Hgb 12.7 L Hct 37.3 L Plt Count 136 Sodium 132 L Creatinine 0.93 Diagnostic Findings 11/01 & 11/02 blood cultures + for MRSA Echocardiogram 11/02: LVEF 60 - 65%, no valvular abnormality
[2018-11-03] MEDS ORDERED: GADOBUTROL 65ML VIAL IV PRN (11:22)
--- NOTE | 2018-11-03 12:35 | Magnetic Resonance Report ---
MRI OF THE THORACIC SPINE COMBO CLINICAL HISTORY: Thoracic back pain. Bacteremia. COMPARISON STUDY: CT scan of the chest dated 10/31/2018. TECHNIQUE: MRI of the thoracic spine is performed utilizing various T1 and T2-weighted sequences in t he axial and sagittal planes. Contrast-enhanced sequences are acquired following the IV administratio n of 11.5 cc of Gadavist. FINDINGS: Vertebral body height and alignment are maintained throughout the thoracic spine. Normal ma rrow signal intensity is preserved throughout the vertebral bodies. The spinous processes appear inta ct. Minimal degenerative disc desiccation is noted, and there is no evidence of discitis. Mild diver helper ior disc bulges are CT at T9-T10 and T10-T11. There is no disc herniation or central canal stenosis i dentified. There is no evidence of high-grade neural foraminal stenosis throughout the thoracic spine . The thoracic spinal cord is normal in morphology and signal intensity. The conus medullaris termina kiran at the level of L1. No abnormal postcontrast enhancement is identified in the thoracic cord. There is inflammatory change in abnormal enhancement identified within the bilateral paraspinous musc ulature at T8-T9, left greater than right. There is a small peripherally enhancing intramuscular flui d collection identified within this region, best seen on axial postcontrast image #22. This measures 11 x 6 x 5 mm, and likely represents a tiny abscess. Inflammatory change and abnormal enhancement als o involves the bilateral T8-T9 facet joints at this level, and there is a subtle thin/crescentic epid ural collection identified within the right aspect of the central canal. This is best seen on axial p ostcontrast image #20 and sagittal postcontrast image #8. This extends from T7 to T9, and measures a maximum of 4 x 13 mm in axial dimension. This minimally effaces the right posterior aspect of the the diallo sac. The lung parenchyma is grossly unremarkable but not well evaluated by MRI. IMPRESSION: 1. There is paraspinous soft tissue inflammation identified at the T8-T9 level with an associated 11 mm intramuscular abscess on the left. 2. Inflammatory change and abnormal enhancement also involves the bilateral T8-T9 facet joints. 3. There is a subtle epidural abscess identified posteriorly on the right which extends from T7-T9 as detailed above. 4. There is no evidence of discitis. 5. The thoracic spinal cord is normal in morphology and signal intensity. Electronically signed by: Vance Saucedo M.D. 11/03/2018 12:34 PM
--- NOTE | 2018-11-03 14:19 | Consultation ---
Date of Consultation November 03, 2018 Assessment & Plan (1) Renal arteriovenous fistula: Pt discussed with Dr Victoria. Pt without any significant sx related to possible renal AV fistula. If present, possibly congenital, as pt denies any prior surgeries or memory of trauma to L flank. Recommend pt undergo CTA abd/pelvis to further eval. Will make further recommendations after CTA. Present on Admission?: Yes History of Present Illness Reason for Consultation: L renal AV fistula Attending Physician: Janusz Yeung DO History of Present Illness 48 yo m without significant medical hx, admitted with upper GI bleeding, seen in consultation today for possible incidental L renal AV fistula noted on CT scan. Pt states he had severe N/V/D starting last weekend and came to ED d/t coffee ground emesis and concern for GI bleeding. 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 Denies HAIR, fever, chills, chest pain, N/V presently, rest pain, claudication, hematuria, SOB. Denies hx of HTN, CHF, DVT, or edema as well. Pt denies any hx of surgery or knowledge of trauma to L flank. CT abd/pelvis demonstrates enlarged renal artery and vein, possibly d/t AV fistula. No further imaging has been performed. Allergies Allergy/AdvReac Type Severity Reaction Status Date / Time cat dander Allergy Intermediate HIVES, Verified 10/30/18 18:52 PUFFY EYES Home Medications Home Medications Medication Instructions Recorded Confirmed Type trazodone 100 - 200 mg PO HS 08/21/18 10/30/18 History Patient History Medical History No pertinent past medical history Surgical History No pertinent past surgical history Family History Other Family history non-contributory Social History Communication Ability: Effective Beliefs That Will Affect Care: None Current Living Situation: Spouse Other Information That Helps Us Care for You: No Feels Safe at Home: Yes Safety Concerns: Feels Safe At This Time Smoking Status: Never smoker Hx Alcohol Use: Yes Hx Substance Use: No Review of Systems Constitutional: no fever, no chills, no sweats, no fatigue, no malaise and no weight loss Eyes: no blind spots and no problem reported Ear, Nose, Mouth, Throat: no hearing loss and no sore throat Respiratory: no cough, no dyspnea, no dyspnea on exertion and no hemoptysis Cardiovascular: no chest pain, no palpitations, no syncope, no claudication and no problem reported Gastrointestinal: + abdominal pain, + nausea (resolved), + vomiting (resolved), + coffee ground emesis and + melena; no early satiety, no cramping and no change in bowel habits Genitourinary (Male): no hematuria Musculoskeletal: no back pain, no joint pain, no swelling and no muscle weakness Integumentary: no rash, no non-healing lesions, no skin ulcer, no wounds and no erythema Neurologic: no localized weakness, no generalized weakness, no paralysis, no loss of sensation, no tingling, no numbness, no paresthesia, no seizure-like activity, no syncope, no headache(s) and no confusion Psychiatric: as per Subjective / HPI Hematologic / Lymphatic: no easy bleeding, no easy bruising, no coagulopathy, no night sweats and no unexplained weight loss Physical Exam Vital Signs (Past 24 Hours): Last Vital Signs Temp 36.8 C 11/03/18 03:40 Pulse 84 11/03/18 03:40 Resp 18 11/03/18 03:40 BP 152/90 H 11/03/18 03:40 Pulse Ox 98 11/03/18 03:40 Constitutional: WD/WN, vitals as above well developed, well nourished, h ealthy appearing, well groomed, cooperative and comfortable Eyes: PERRL, conjunctivae normal, anicteric sclerae EOM intact bilaterally ENMT: external ear and nose normal, oropharynx normal Ears: no hearing impairment Nose: no nasal discharge Neck: trachea midline, no thyromegaly no tracheal deviation, no neck crepitus and neck nontender Respiratory: normal respiratory effort, lungs clear to auscultation able to speak in complete sentences; does not use accessory muscles, no cough, not tachypneic and no audible wheezes Auscultation: lungs clear to auscultation bilaterally and + diminished lung sounds; no rhonchi and no wheezes Cardiovascular: RRR, no murmur, no edema Rate/Rhythm: regular rate, regular rhythm, + bradycardic and + tachycardic Heart Sounds: no gallop and no murmur Vessels: femoral pulses present, posterior tibial pulses present, dorsalis pedis pulses present, brachial pulses present and radial pulses present; no carotid bruit, no femoral bruit and no renal bruit Extremities: normal capillary refill; no edema Chest (Breasts): Chest: normal inspection of chest Gastrointestinal (Abdomen): Inspection/Auscultation: abdomen normal to inspection and normal bowel sounds; abdomen not distended Percussion/Palpation: + abdomen tender (RUQ mildly) and abdomen soft; no guarding, abdomen not rigid and no abdominal mass Musculoskeletal: no cyanosis or clubbing, extremities motor strength 5/5 Head/Neck/Chest: normocephalic, head atraumatic and neck supple; no chest tenderness Extremities: extremities normal to inspection and strength 5/5 throughout; full ROM of extremities, no chronic stasis changes and no clubbing Skin: no rashes, warm and dry normal turgor; no rashes, no lesions, no ulcers, no induration, no wound, no erythema, no excoriations and no mottling Neurologic: moves all extremities and awake; no focal motor deficits and not confused Speech / Cognition: no expressive aphasia and no receptive aphasia Motor/Sensory: no tremor and no sensory deficit Cranial Nerves: EOM intact bilaterally, normal facial strength and tongue midline Psychiatric: Orientation: alert, oriented x 3, oriented to person, oriented to place, oriented to time and cooperative Apperance: appropriately dressed, appropriately groomed and appeared stated age; not disheveled Affect: euthymic affect Thought Process: goal directed thought process, linear/logical thought process and clear/coherent thought process Cognition: recent memory grossly intact, remote memory grossly intact, attention grossly intact and language grossly intact Estimated Intelligence: average estimated intelligence Lymphatic: no lymphedema
[2018-11-03] MEDS: AZITHROMYCIN 500 MG in DEXTROSE 5% 250 ML IV SCH (16:32)
--- NOTE | 2018-11-03 17:58 | Hospitalist Progress Note ---
Date of Service November 03, 2018 Assessment & Plan (1) Upper GI bleed: Scopess appreciated, results noted. Pathology consistent with scopes and negative for H Pylori (2) Abdominal pain: Likely related to above, vs less likely related to Tspien findings (3) Acute kidney injury: Improved, follow (4) Renal arteriovenous fistula: vascular seeing for this (5) Pneumonia: continue antibiotics as per gram positive bacteremia (6) Gastric ulcer: PPI (7) Esophagitis: PPI, follow. tolerating diet (8) Gram-positive bacteremia: Appears on early serologies this will be MSSA, shows distal signs of bact eremia w leg lesions. Tspine MRI noted (small paraspinal abscesses and small possible epidural abscess) -ID input appreciated -continue current abx pending final sensitivities (still pending) -continue supportive care -?value of LENORE given that Tspine findings will necessitate similar duration as for endocarditis - but will defer to ID in this regard (9) Back pain: overall doing better wtih escalated pain control actually seems to relate to Tspine findings on MRI continue current care and antibiotics (10) Hypotension: (11) Hyponatremia: (12) DVT prophylaxis: ambulation (13) Thoracic abscess: discussed w mary neurosurgery - expected that antibiotics alone would suffice - at this point on review of case he agrees no surgery required. Subjective was feeling better but back hurting worse since MRI - but thinks that with sitting up / leaning it's starting to feel better again ID input appreciated reviewed current fndinings/labs/etc w pt and and answered all questions to the best of my ability other than back pain and occassional epigastric pain Review of Systems All systems reviewed & are unremarkable except as noted in HPI & below Physical Exam Vital Signs (Past 24 Hours): Last Vital Signs Temp 37.3 C 11/03/18 15:33 Pulse 88 11/03/18 15:33 Resp 18 11/03/18 15:33 BP 132/74 11/03/18 15:33 Pulse Ox 96 11/03/18 15:33 Physical Exam: pleasant nad heent nc at mmm breathing unlabored no pallor or icterus. leg lesions the same as before (1) Abdominal pain Abdominal location: unspecified location Qualified Code(s): R10.9 - Unspecified abdominal pain (2) Back pain Back pain laterality: unspecified Back pain location: back pain in unspecified location Chronicity: unspecified Qualified Code(s): M54.9 - Dorsalgia, unspecified
[2018-11-03] MEDS: TRAZODONE HCL 100 MG TAB PO SCH (20:35)
[2018-11-04] MEDS: KETOROLAC TROMETHAMINE 15 MG/ML VIAL IV PRN ×4 (02:15→21:15)
[2018-11-04] MEDS: CEFAZOLIN 2000MG 2,000 MG/15 ML SYR IV SCH ×3 (02:16→18:10)
[2018-11-04] MEDS: TRAMADOL HCL 50 MG TABLET PO PRN (05:16)
[2018-11-04] MEDS: MoRPHine SULFATE 4 MG/ML 1 ML CARP\\VIAL IV PRN ×2 (06:46→18:21)
[2018-11-04 06:50] LABS: BUN Creatinine Ratio 12.9 (10-20); Calcium 7.7 mg/dl (8.5-10.1); Creatinine Clr Calc Pharmacy 161.8 ml/min; Est GFR (African American) 126.8; Est GFR (Non-African American) 109.4; Potassium 3.5 mmol/L (3.5-5.1)
[2018-11-04] MEDS: ACETAMINOPHEN 325 MG TAB PO PRN ×2 (06:50→22:59)
[2018-11-04 06:53] LABS: Hematocrit (blood only) 34.7 % (42-52); Hemoglobin 11.6 g/dL (14.0-18.0); Mean Corpuscular Hgb Conc 33.4 g/dL (32-36); Mean Corpuscular Volume 88.7 fL (80-100); Mean Platelet Volume 9.5 fL (7.4-10.4); Platelet Count 219 K/uL (130-400); RDW Coefficient of Variation 14.1 % (11.5-14.5); Red Blood Count 3.91 M/uL (4.7-6.1); White Blood Count 11.27 K/uL (4.8-10.8)
[2018-11-04 07:02] LABS: Basophils # (auto) 0.05 K/uL (0-0.2); Basophils % (auto) 0.4 %; Eosinophils # (auto) 0.14 K/uL (0-0.5); Eosinophils % (auto) 1.2 %; Immature Granulocytes # (auto) 0.24 K/uL (0.00-0.02); Immature Granulocytes % (auto) 2.1 %; Lymphocytes # (auto) 1.22 K/uL (1.2-3.4); Lymphocytes % (auto) 10.8 %; Monocytes # (auto) 1.19 K/uL (0.11-0.59); Monocytes % (auto) 10.6 %; Neutrophils # (auto) 8.43 K/uL (1.4-6.5); Neutrophils % (auto) 74.9 %
--- NOTE | 2018-11-04 08:30 | Communication Note ---
Date of Service: November 04, 2018 Awaiting CTA of abdomen
[2018-11-04] MEDS ORDERED: OPTIRAY 320 125ml IV PRN (09:30)
[2018-11-04] MEDS: SUCRALFATE 1 GM/10 ML UDC PO SCH ×4 (09:45→21:13)
[2018-11-04] MEDS: PANTOprazole 40 MG TAB PO SCH ×2 (09:45→21:13)
[2018-11-04] MEDS: DOCUSATE SODIUM 100 MG CAP PO SCH ×2 (09:45→21:15)
[2018-11-04] MEDS: LIDOCAINE 5% 1 PATCH TD SCH (09:46)
[2018-11-04] MEDS: POLYETHYLENE (MIRALAX) 17 GM PACK PO PRN (09:57)
--- NOTE | 2018-11-04 09:58 | CT Scan Report ---
CT angio abd pelvis wo/w con HISTORY: L renal AV fistula TECHNIQUE: Multiaxial CT images of the abdomen and pelvis were performed both before and after the in travenous ministration of contrast to evaluate the vascular structures. Maximal intensity projection images were also obtained. COMPARISON STUDY: Abdomen and pelvis CT 10/30/2018. FINDINGS: The heart remains mildly enlarged. Small left and trace right pleural effusions are noted. Patchy bibasilar densities favor atelectasis. There are 2 peripheral nodule seen within the left lowe r lobe one of which demonstrate central cavitation. These measure 8 mm. These are similar to the prio r study and may represent infectious change or septic pulmonary emboli despite the normal prior chest CTA. No pneumoperitoneum. No pneumatosis. No fractures within the visualized osseous structures. Hep atic steatosis. The gallbladder remains mildly distended. Minimal inflammatory change adjacent to the gallbladder. The spleen is mildly enlarged, unchanged. Normal adrenal glands and pancreas. Normal ri ght kidney. Redemonstration of the left renal AV fistula. This results in the dilated left renal sujata ry and vein. Small amount of thrombus within the proximal left renal vein, unchanged. The left renal vein measures up to 2.7 cm in diameter. Partially calcified and focal aneurysmal dilatation at the AV fistula connection. This measures 2.5 x 1.5 cm in size. Mild bilateral perinephric edema. No hydrone phrosis. No retroperitoneal lymphadenopathy. The bladder is unremarkable. Colonic diverticulosis. No bowel wall thickening or obstruction. Normal appendix. IMPRESSION: 1. No significant change in the left renal AV fistula. There is a small amount of nonocclusive thromb us within the left renal vein, unchanged. There is also focal aneurysmal dilatation of the AV fistula connection measuring 2.5 x 1.5 cm. Vascular surgery or interventional radiology consultation recomme nded. 2. No change in the subcentimeter nodules within the left lower lobe. One of these demonstrates centr al cavitation. Despite the normal recent chest CTA, this favors septic pulmonary emboli. Infectious p rocess could also have a similar appearance. 3. No bowel wall thickening or obstruction. 4. Mild gallbladder distention. Minimal inflammatory change adjacent to the gallbladder could represe nt edema. Clinical correlation recommended. 5. Small left and trace right pleural effusions. 6. Mild splenomegaly, unchanged. Electronically signed by: Cirilo Mayen M.D. 11/04/2018 9:55 AM
--- NOTE | 2018-11-04 10:34 | Nephrology Progress Note ---
Date of Service November 04, 2018 Assessment & Plan (1) Gram-positive bacteremia: -- Blood cultures 11/01 & 11/02 + for MSSA -- Echocardiogram 11/02 was negative for valvular abnormality -- MRI noted intramusclular abscess left paraspinal -- ID recommendations reviewed. Patient is currently on Cefazolin and Azithromycin. -- No recent skin/soft tissue infections. (2) RUQ pain: -- EGD demonstrated non-bleeding gastric ulcers as well as duodenitis, and mild esophagitis. -- Pathology consistent with reactive gastropathy; H pylori negative. -- Symptoms atypical for anything related to L renal AVF. 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 -- CTA pending. -- Vascular surgery consult appreciated. -- Patient's symptoms are very atypical for anything related to this finding. -- Creatinine is stable at 0.9. Urine sediment was without blood -- Nephrology will sign off. -- Outpatient follow up can be arranged post discharge. -- Please call with questions or concerns. Subjective Mr. Luong was seen & examined in his hospital room this morning. Back pain is improving. He denies fevers or chills. He denies hematuria or any urinary complaints. He is breathing comfortably. LE edema is improving.. Review of Systems All systems reviewed & are unremarkable except as noted in HPI & below Physical Exam Vital Signs (Past 24 Hours): Last Vital Signs Temp 36.8 C 11/04/18 07:12 Pulse 85 11/04/18 07:12 Resp 16 11/04/18 07:12 BP 143/76 H 11/04/18 07:12 Pulse Ox 95 11/04/18 07:12 Constitutional: well developed, + obese, + in distress and + edematous Eyes: no scleral abnormality and no corneal abnormality ENMT: Mouth: no oral mucosal abnormality and oral mucous membranes not dry Neck: normal visual inspection and + thick neck Respiratory: normal respiratory effort; no respiratory distress Auscultation: lungs clear to auscultation bilaterally Cardiovascular: Heart Sounds: normal S1 and normal S2; no murmur Vessels: no JVD Gastrointestinal (Abdomen): Inspection/Auscultation: normal bowel sounds Percussion/Palpation: abdomen nontender and no guarding Musculoskeletal: Extremities: no cyanosis and no clubbing Skin: normal turgor and + dry skin Neurologic: Motor/Sensory: no tremor and no asterixis Psychiatric: Affect: + angry affect Results & Data Laboratory Results Laboratory Results - last 24 hr 11/01/18 11/04/18 11/04/18 05:26 05:38 05:38 WBC 11.27 H RBC 3.91 L Hgb 11.6 L Hct 34.7 L MCV 88.7 MCH 29.7 MCHC 33.4 RDW Std Deviation 46.0 RDW Coeff of Cruz 14.1 Plt Count 219 D MPV 9.5 Immature Gran % (Auto) 2.1 Neut % (Auto) 74.9 Lymph % (Auto) 10.8 [place] % (Auto) 10.6 Eos % (Auto) 1.2 Baso % (Auto) 0.4 Immature Gran # (Auto) 0.24 H Neut # (Auto) 8.43 H Lymph # (Auto) 1.22 [place] # (Auto) 1.19 H Eos # (Auto) 0.14 Baso # (Auto) 0.05 Sodium 132 L Potassium 3.5 Chloride 98 Carbon Dioxide 31 Anion Gap 3.0 BUN 10 Creatinine 0.76 Est Cr Clr Drug Dosing 161.8 Est GFR ( Amer) 126.8 Est GFR (Non-Af Amer) 109.4 BUN/Creatinine Ratio 12.9 Glucose 102 H Calcium 7.7 L Gastrin <15
--- NOTE | 2018-11-04 18:20 | Hospitalist Progress Note ---
Date of Service November 04, 2018 Assessment & Plan (1) Upper GI bleed: Scopes appreciated, results noted. Pathology consistent with scopes and negative for H Pylori (2) Abdominal pain: Likely related to above, versus less likely related to Tspine findings (3) Acute kidney injury: Improved, follow periodically (4) Renal arteriovenous fistula: vascular seeing for this, input appreciated (5) Pneumonia: continue antibiotics as per gram positive bacteremia (6) Gastric ulcer: PPI (7) Esophagitis: PPI, follow. tolerating diet, no new problems in this regard (8) Gram-positive bacteremia: Appears on early serologies this will be MSSA, shows distal signs of bacteremia w leg lesions. Tspine MRI noted (small paraspinal abscesses and small possible epidural abscess) -ID input appreciated -continue current abx pending final sensitivities (still pending) -continue supportive care -?value of LENORE given that Tspine findings will necessitate similar duration as for endocarditis - but will defer to ID in this regard, although given that he is persistently bacteremic, it may be worthwhile to see if there is any valvulopathy that may need further intervention beyond antibiotics (9) Back pain: overall doing better wtih escalated pain control actually seems to relate to Tspine findings on MRI continue current care and antibiotics, supportive care, pain control (10) Hypotension: (11) Hyponatremia: (12) DVT prophylaxis: ambulation (13) Thoracic abscess: discussed w mary neurosurgery on 11/03- expected that antibiotics alone would suffice - at this point on review of case he agrees no surgery required. Patient is showing no deterioration in this regard Subjective Back pain and pain and appears to now be radiating around to his chest improving but still ongoing No other new complaints. Updated on lab findings, and overall plan. Review of systems otherwise negative except for as above Review of Systems All systems reviewed & are unremarkable except as noted in HPI & below Physical Exam Vital Signs (Past 24 Hours): Last Vital Signs Temp 36.7 C 11/04/18 15:31 Pulse 82 11/04/18 15:31 Resp 16 11/04/18 15:31 BP 148/82 H 11/04/18 15:31 Pulse Ox 97 11/04/18 15:31 Physical Exam: General he is awake alert oriented x3 pleasant no acute distress. HEENT normocephalic atraumatic mucous membranes are moist. Breathing is unlabored no accessory muscle use. Skin shows no rashes no pallor or icterus other than the leg lesions noted before, these appear to be unchanged. He shows no focal neuro deficits. (1) Abdominal pain Abdominal location: unspecified location Qualified Code(s): R10.9 - Unspecified abdominal pain (2) Back pain Back pain laterality: unspecified Back pain location: back pain in uns pecified location Chronicity: unspecified Qualified Code(s): M54.9 - Dorsalgia, unspecified
[2018-11-04] MEDS: TRAZODONE HCL 100 MG TAB PO SCH (21:13)
[2018-11-05] MEDS: CEFAZOLIN 2000MG 2,000 MG/15 ML SYR IV SCH ×3 (03:29→17:33)
[2018-11-05] MEDS: KETOROLAC TROMETHAMINE 15 MG/ML VIAL IV PRN ×3 (08:10→20:37)
[2018-11-05] MEDS: LIDOCAINE 5% 1 PATCH TD SCH (08:11)
[2018-11-05] MEDS: SUCRALFATE 1 GM/10 ML UDC PO SCH ×4 (08:11→20:38)
[2018-11-05] MEDS: DOCUSATE SODIUM 100 MG CAP PO SCH ×2 (08:11→20:38)
[2018-11-05] MEDS: PANTOprazole 40 MG TAB PO SCH ×2 (08:11→20:38)
--- NOTE | 2018-11-05 12:59 | Communication Note ---
Date of Service: November 05, 2018 Patient not having any symptoms related to his renal artery to renal vein fistula. No treatment needed unless complications of the fistula develop.
[2018-11-05] MEDS: MoRPHine SULFATE 4 MG/ML 1 ML CARP\\VIAL IV PRN (13:01)
[2018-11-05] MEDS: TRAMADOL HCL 50 MG TABLET PO PRN (17:32)
--- NOTE | 2018-11-05 17:48 | Hospitalist Progress Note ---
Date of Service November 05, 2018 Assessment & Plan (1) Upper GI bleed: Scopes appreciated, results noted. Pathology consistent with scopes and negative for H Pylori. This seems to now be stable. (2) Abdominal pain: Likely related to above, versus also possibly related to Tspine findings Improving (3) Acute kidney injury: Improved, follow periodically (4) Renal arteriovenous fistula: vascular seeing for this, input appreciated (5) Pneumonia: continue antibiotics as per gram positive bacteremia, seems to be asymptomatic in this regard (6) Gastric ulcer: PPI (7) Esophagitis: PPI, follow. tolerating diet, no new problems in this regard (8) Gram-positive bacteremia: Appears on early serologies this will be MSSA, shows distal signs of bacteremia w leg lesions. Tspine MRI noted (small paraspinal abscesses and small possible epidural abscess) -ID input appreciated -continue current abx and await infectious disease recommendations for what will be his long-term antibiotics. He will definitely need at least 6-8 weeks. -Discussed with patient and in depth, given his persistently positive blood cultures he almost certainly has endocarditis. That said given that his valve integrity is intact, he would not require any kind of valve surgery. 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 Instead, we will follow periodic transthoracic echoes to ensure valve integrity stays intact. -Repeat blood cultures tomorrow -Once his blood cultures are negative and his prolonged course has been decided upon, we can then proceed with a PICC line (9) Back pain: Improving overall. (10) Hypotension: (11) Hyponatremia: (12) DVT prophylaxis: ambulation (13) Thoracic abscess: discussed w mary neurosurgery on 11/03- expected that antibiotics alone would suffice - at this point on review of case he agrees no surgery required. Symptomatically improving Subjective Back and chest pain actually getting better. Low-grade temperature through the night, although he actually wonders if it is because his room was too warm. Leg lesions are getting better. No other new symptoms. extensive discussion with patient and , answered all questions to the best my ability. Review of Systems All systems reviewed & are unremarkable except as noted in HPI & below Physical Exam Vital Signs (Past 24 Hours): Last Vital Signs Temp 36.4 C L 11/05/18 15:55 Pulse 81 11/05/18 15:55 Resp 17 11/05/18 15:55 BP 144/80 H 11/05/18 15:55 Pulse Ox 96 11/05/18 15:55 Physical Exam: General he is awake alert oriented x3 pleasant no distress. HEENT normocephalic atraumatic mucous membranes moist. Breathing is unlabored no accessory muscle use. Skin shows no pallor or icterus, the small punctate lesions on his legs are fading. Neuro shows no focal deficits. Mental status good recent and remote recall normal mood and affect good judgment and insight. (1) Abdominal pain Abdominal location: unspecified location Qualified Code(s): R10.9 - Unspecified abdominal pain (2) Back pain Back pain laterality: unspecified Back pain location: back pain in uns pecified location Chronicity: unspecified Qualified Code(s): M54.9 - Dorsalgia, unspecified
[2018-11-05] MEDS: TRAZODONE HCL 100 MG TAB PO SCH (20:38)
[2018-11-06] MEDS: KETOROLAC TROMETHAMINE 15 MG/ML VIAL IV PRN ×2 (02:16→08:21)
[2018-11-06] MEDS: CEFAZOLIN 2000MG 2,000 MG/15 ML SYR IV SCH ×3 (02:16→18:08)
[2018-11-06 06:53] LABS: CK Total 104 U/L (44-196); CK-MB 0 % (<5); CK-MM 100 % (95-100)
[2018-11-06 07:40] LABS: Basophils # (auto) 0.02 K/uL (0-0.2); Basophils % (auto) 0.2 %; Eosinophils # (auto) 0.08 K/uL (0-0.5); Eosinophils % (auto) 0.8 %; Hematocrit (blood only) 32.7 % (42-52); Hemoglobin 10.9 g/dL (14.0-18.0); Immature Granulocytes # (auto) 0.17 K/uL (0.00-0.02); Immature Granulocytes % (auto) 1.7 %; Lymphocytes # (auto) 1.23 K/uL (1.2-3.4); Lymphocytes % (auto) 12.2 %; Mean Corpuscular Hgb Conc 33.3 g/dL (32-36); Mean Corpuscular Volume 88.1 fL (80-100); Mean Platelet Volume 9.1 fL (7.4-10.4); Monocytes # (auto) 0.83 K/uL (0.11-0.59); Monocytes % (auto) 8.2 %; Neutrophils # (auto) 7.74 K/uL (1.4-6.5); Neutrophils % (auto) 76.9 %; Platelet Count 253 K/uL (130-400); RDW Coefficient of Variation 13.4 % (11.5-14.5); RDW Standard Deviation 43.2 fL (36.4-46.3); Red Blood Count 3.71 M/uL (4.7-6.1); White Blood Count 10.07 K/uL (4.8-10.8)
[2018-11-06] MEDS: SUCRALFATE 1 GM/10 ML UDC PO SCH ×4 (07:59→20:03)
[2018-11-06] MEDS: LIDOCAINE 5% 1 PATCH TD SCH (07:59)
[2018-11-06] MEDS: PANTOprazole 40 MG TAB PO SCH ×2 (07:59→20:03)
[2018-11-06] MEDS: DOCUSATE SODIUM 100 MG CAP PO SCH ×2 (08:00→20:03)
[2018-11-06 08:15] LABS: Calcium 7.7 mg/dl (8.5-10.1); Creatinine Clr Calc Pharmacy 159.7 ml/min; Est GFR (African American) 126.1; Est GFR (Non-African American) 108.8; Potassium 3.4 mmol/L (3.5-5.1)
[2018-11-06] MEDS: GABAPENTIN 100 MG CAP PO SCH ×2 (14:42→20:03)
--- NOTE | 2018-11-06 15:55 | Infectious Disease Progress Nt ---
Date of Service November 06, 2018 Assessment & Plan (1) Staphylococcus aureus sepsis: 48-year-old male with staph aureus sepsis with thoracic paraspinal infection with possible small epidural collection. Does not appear to be requiring surgical intervention at this time. Given that patient will require prolonged i.e. 6 weeks of IV antibiotics, do not think that LENORE is necessary at this time given relatively benign trans-thoracic echocardiogram. Will need to ensure clearance of bacteremia prior to discharge for home antibiotics. Will follow. (2) Thoracic abscess: Subjective Patient seen in follow-up for staphylococcal sepsis. Blood cultures have continued to grow staph aureus. CT scan of thoracic spine confirms diagnosis of paraspinal infection. Patient feeling better, back pain has diminished. Currently afebrile. Review of Systems All systems reviewed & are unremarkable except as noted in HPI & below Physical Exam Vital Signs (Past 24 Hours): Last Vital Signs Temp 37.5 C 11/06/18 14:55 Pulse 87 11/06/18 14:55 Resp 24 11/06/18 14:55 BP 146/83 H 11/06/18 14:55 Pulse Ox 95 11/06/18 14:55 Constitutional: WD/WN, vitals as above comfortable; no acute distress Eyes: PERRL, conjunctivae normal, anicteric sclerae ENMT: external ear and nose normal, oropharynx normal Neck: trachea midline, no thyromegaly neck nontender Respiratory: normal respiratory effort, lungs clear to auscultation normal percussion; does not use accessory muscles Cardiovascular: Rate/Rhythm: regular rate and regular rhythm Heart Sounds: normal S1 and normal S2; no gallop, no murmur and no cardiac rub Vessels: normal peripheral pulses; no JVD Gastrointestinal (Abdomen): normal bowel sounds, soft, nontender, no hepatosplenomegaly Musculoskeletal: no cyanosis or clubbing, extremities motor strength 5/5 Spine: thoracic spine normal to inspection and lumbar spine normal to inspection; no cervical spinal tenderness Skin: normal turgor; no rashes Neurologic: patellar DTR's 2+ bilat, sensation intact no focal motor deficits Psychiatric: A+Ox3, euthymic affect Orientation: cooperative Lymphatic: no cervical or axillary lymphadenopathy no inguinal lymphadenopathy Results & Data Laboratory Results Short CBC 11/06/18 Range/Units 07:14 WBC 10.07 (4.8-10.8) K/uL Hgb 10.9 L (14.0-18.0) g/dL Hct 32.7 L (42-52) % Plt Count 253 (130-400) K/uL BMP 11/06/18 07:14 Sodium 135 L Potassium 3.4 L Chloride 99 Carbon Dioxide 29 BUN 9 Creatinine 0.77 Glucose 106 H Calcium 7.7 L Cardiac Enzymes 11/01/18 Range/Units 15:27 Total Creatine Kinase 104 (44-196) U/L CK-MB (CK-2) 0 (<5) % Diagnostic Findings Microbiology 11/01/18 07:48 Blood Blood Culture - Final Staphylococcus aureus 11/04/18 09:41 Blood Blood Culture - Preliminary Staphylococcus aureus 11/04/18 09:33 Blood Blood Culture - Preliminary Staphylococcus aureus 11/01/18 07:59 Blood Blood Culture - Final Staphylococcus aureus 11/02/18 09:10 Blood Blood Culture - Preliminary Gram positive cocci 11/02/18 09:44 Blood Blood Culture - Preliminary Gram positive cocci 10/31/18 01:20 Urine,Clean Catch Urine Culture - Final No growth - less than 1,000 colonies/mL. MRI OF THE THORACIC SPINE COMBO CLINICAL HISTORY: Thoracic back pain. Bacteremia. COMPARISON STUDY: CT scan of the chest dated 10/31/2018. TECHNIQUE: MRI of the thoracic spine is performed utilizing various T1 and T2- weighted sequences in the axial and sagittal planes. Contrast-enhanced sequences are acquired following the IV administration of 11.5 cc of Gadavist. FINDINGS: Vertebral body height and alignment are maintained throughout the thoracic spine. Normal marrow signal intensity is preserved throughout the vertebral bodies. The spinous processes appear intact. Minimal degenerative disc desiccation is noted, and there is no evidence of discitis. Mild posterior disc bulges are CT at T9-T10 and T10-T11. There is no disc herniation or central canal stenosis identified. There is no evidence of high-grade neural foraminal stenosis throughout the thoracic spine. The thoracic spinal cord is normal in morphology and signal intensity. The conus medullaris terminates at the level of L1. No abnormal postcontrast enhancement is identified in the thoracic cord. There is inflammatory change in abnormal enhancement identified within the bilateral paraspinous musculature at T8-T9, left greater than right. There is a small peripherally enhancing intramuscular fluid collection identified within this region, best seen on axial postcontrast image #22. This measures 11 x 6 x 5 mm, and likely represents a tiny abscess. Inflammatory change and abnormal enhancement also involves the bilateral T8-T9 facet joints at this level, and there is a subtle thin/crescentic epidural collection identified within the right aspect of the central canal. This is best seen on axial postcontrast image #20 and sagittal postcontrast image #8. This extends from T7 to T9, and measures a maximum of 4 x 13 mm in axial dimension. This minimally effaces the right posterior aspect of the thecal sac. The lung parenchyma is grossly unremarkable but not well evaluated by MRI. IMPRESSION: 1. There is paraspinous soft tissue inflammation identified at the T8-T9 level with an associated 11 mm intramuscular abscess on the left. 2. Inflammatory change and abnormal enhancement also involves the bilateral T8- T9 facet joints. 3. There is a subtle epidural abscess identified posteriorly on the right which extends from T7-T9 as detailed above. 4. There is no evidence of discitis. 5. The thoracic spinal cord is normal in morphology and signal intensity. Electronically signed by: Vance Saucedo M.D. 11/03/2018 12:34 PM Dictated: 11/03/18 1217 Transcribed: 11/03/18 1217
--- NOTE | 2018-11-06 16:22 | Medical Student Progress Note ---
Date of Service November 06, 2018 Assessment & Plan (1) Gram-positive bacteremia: 48 yo m without significant medical hx, admitted with upper GI bleeding in context of severe N/V/D starting last weekend; came to ED with coffee ground emesis and concern for GI bleeding. 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 Pt discovered to have bacteremia and thoracic paraspinal abscesses. Pt's pain is improving with Abx treatment-- indicating pain may back, flank, and RUQ pain may be referred pain from the paraspinal abscesses. Once Blood cultures show no growth (ie bacteremia treated), then PICC line can be placed and pt will continue IV Abx for minimum of 6wks. LENORE not recommended at this time b/c it will not alter management and TTE showed no evidence of valvular damage. Given bacteremia and septic emboli manifesting as punctate lesion in b/l LEs, endocarditis is a concern. Staph may have been introduced into the blood stream from pt removing an in- grown toenail at home; pt has had no recent hx of skin lesions. (2) Esophagitis: Esophagitis discovered during GI workup for GI bleed. No bleed discovered; hematemesis was most likely from a M-W tear from significant episodes of emesis. 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 No surgical intervention required at this time; will f/u with nephrology. Subjective 48 yo m without significant medical hx, admitted with upper GI bleeding in context of severe N/V/D starting last weekend; came to ED with coffee ground emesis and concern for GI bleeding. 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 Pt discovered to have bacteremia and thoracic paraspinal abscesses. Pt states flank and RUQ pain now a 3/10. Pt described small punctate LE lesions as almost gone. No F/C/N/V/D or weakness. GENERAL, CONSTITUTIONAL- No Recent weight loss, Fever, Chills HEART, CARDIOVASCULAR- No Chest pain or pressure, Arrhythmia or palpitations, Shortness of breath, Peripheral edema RESPIRATORY- No Cough, Shortness of breath, Wheezing GASTROINTESTINAL- No Abdominal pain, Heartburn, Bloody stool SKIN & INTEGUMENTARY- No Rashes, Sores, Blisters, Growths Physical Exam Vital Signs (Past 24 Hours): Last Vital Signs Temp 37.5 C 11/06/18 14:55 Pulse 87 11/06/18 14:55 Resp 24 11/06/18 14:55 BP 146/83 H 11/06/18 14:55 Pulse Ox 95 11/06/18 14:55 Physical Exam: GENERAL: WD/WN, alter, cooperative, no acute distress HEENT: Mouth: Moist mucous membranes, no lesions. Nervous System: Mental status: Alert and oriented x 3, good concentration. Cranial nerves IIXII grossly intact. Motor: Strength 5/5 in all muscle groups UE and LE Chest/Lung: Clear to auscultation bilaterally. No rales, rhonchi, wheezing, or rubs. Heart: PMI not displaced. Regular rate and rhythm. Normal S1, S2. No murmurs, rubs, or gallops. Abdomen: Soft, nontender, nondistended, BS present Extremities: No clubbing, cyanosis, or edema.
[2018-11-06] MEDS: TRAZODONE HCL 100 MG TAB PO SCH (20:03)
--- NOTE | 2018-11-06 20:06 | Hospitalist Progress Note ---
Date of Service November 06, 2018 Assessment & Plan (1) Aortic valve endocarditis: echo today does indeed appear to show a probable aortic valve vegetation. left-sided endocarditis would account for the skin lesions on the legs. plan is for minimum of 6 week of IV abx therapy. daily blood cx's until negative. suspect he seeded the blood when he removed a portion of his great toenail 1 month ago. appreciate ID consultation. no PICC placement until blood cx's are negative. defer abx selection to ID. (2) Thoracic abscess: 2nd to staph aureus septicemia/endocarditis pain control IV abx (3) Staphylococcus aureus sepsis: as above (4) Hyponatremia: improved bmp in am (5) Gastric ulcer: cont PPI (6) Esophagitis: cont PPI (7) RUQ pain: suspect this is thoracic radicular pain from the epidural abscess start gabapentin 100mg TID and titrate (8) DVT prophylaxis: ambulation updated Subjective pt overall feeling good he does complain of a stabbing pain in the subcostal region on right when he feels mid-thoracic back pain he has pain in the subcostal region at same time no pain w/ eating food admits to performing minor surgery on himself about 1 month ago - removed an ingrown toenail at home Constitutional: no fever and no chills Respiratory: no cough and no dyspnea Cardiovascular: no chest pain Gastrointestinal: no abdominal pain Physical Exam Vital Signs (Past 24 Hours): Last Vital Signs Temp 37.8 C H 11/06/18 19:00 Pulse 88 11/06/18 19:00 Resp 18 11/06/18 19:00 BP 134/73 11/06/18 19:00 Pulse Ox 96 11/06/18 19:00 Constitutional: well developed and well nourished; no acute distress and not ill appearing ENMT: external ear and nose normal, oropharynx normal Respiratory: normal respiratory effort, lungs clear to auscultation Cardiovascular: RRR, no murmur, no edema Heart Sounds: normal S1 and normal S2 Vessels: posterior tibial pulses present and dorsalis pedis pulses present; no JVD Gastrointestinal (Abdomen): normal bowel sounds, soft, nontender, no hepatosplenomegaly Musculoskeletal: mid-thoracic tenderness Skin: resolving petechial hemorrhages on anterior shins Psychiatric: A+Ox3, euthymic affect Results & Data Laboratory Results Laboratory Results - last 24 hr 11/01/18 11/06/18 11/06/18 15:27 07:14 07:14 WBC 10.07 RBC 3.71 L Hgb 10.9 L Hct 32.7 L MCV 88.1 MCH 29.4 MCHC 33.3 RDW Std Deviation 43.2 RDW Coeff of [place] 13.4 Plt Count 253 MPV 9.1 Immature Gran % (Auto) 1.7 Neut % (Auto) 76.9 Lymph % (Auto) 12.2 [place] % (Auto) 8.2 Eos % (Auto) 0.8 Baso % (Auto) 0.2 Immature Gran # (Auto) 0.17 H Neut # (Auto) 7.74 H Lymph # (Auto) 1.23 [place] # (Auto) 0.83 H Eos # (Auto) 0.08 Baso # (Auto) 0.02 Sodium 135 L Potassium 3.4 L Chloride 99 Carbon Dioxide 29 Anion Gap 7.0 BUN 9 Creatinine 0.77 Est Cr Clr Drug Dosing 159.7 Est GFR ( Amer) 126.1 Est GFR (Non-Af Amer) 108.8 BUN/Creatinine Ratio 11.0 Glucose 106 H Calcium 7.7 L Total Creatine Kinase 104 CK-MM (CK-3) 100 CK-MB (CK-2) 0 CK-BB (CK-1) None Detected Creatine Kinase Interp see note (1) Gastric ulcer Gastric ulcer chronicity: acute Gastric ulcer complication status: with hemorrhage Qualified Code(s): K25.0 - Acute gastric ulcer with hemorrhage
[2018-11-06] MEDS: ACETAMINOPHEN 325 MG TAB PO PRN (22:15)
[2018-11-07] MEDS: CEFAZOLIN 2000MG 2,000 MG/15 ML SYR IV SCH ×3 (02:03→17:56)
[2018-11-07] MEDS: KETOROLAC TROMETHAMINE 15 MG/ML VIAL IV PRN (04:17)
[2018-11-07 06:45] LABS: BUN Creatinine Ratio 8.4 (10-20); Calcium 7.5 mg/dl (8.5-10.1); Creatinine Clr Calc Pharmacy 146.4 ml/min; Est GFR (African American) 121.7; Potassium 3.4 mmol/L (3.5-5.1)
[2018-11-07] MEDS: PANTOprazole 40 MG TAB PO SCH ×2 (08:24→21:23)
[2018-11-07] MEDS: GABAPENTIN 100 MG CAP PO SCH ×3 (08:24→21:23)
[2018-11-07] MEDS: SUCRALFATE 1 GM/10 ML UDC PO SCH ×4 (08:24→21:23)
[2018-11-07] MEDS: LIDOCAINE 5% 1 PATCH TD SCH (08:25)
[2018-11-07] MEDS: DOCUSATE SODIUM 100 MG CAP PO SCH ×2 (08:25→21:23)
[2018-11-07] MEDS ORDERED: POTASSIUM CHLORIDE 10 MEQ TABCR PO STA (08:50)
--- NOTE | 2018-11-07 10:41 | Infectious Disease Progress Nt ---
Date of Service November 07, 2018 Assessment & Plan (1) Staphylococcus aureus sepsis: 48-year-old male with staph aureus sepsis with thoracic paraspinal infection with possible small epidural collection, and now echocardiogram suggestive of aortic valve endocarditis. Repeat blood cultures have been drawn, but if remains bacteremic, will require transfer to tertiary care center for possible surgical intervention for failure to clear bacteremia. Otherwise continue on cefazolin for now, would likely change to ceftriaxone 2 g daily if can clear bacteremia to allow home IV antibiotics. Will require 6 weeks of IV antibiotic therapy. (2) Thoracic abscess: Subjective Patient seen in follow-up for staphylococcal sepsis. Blood cultures have continued to grow staph aureus. CT scan of thoracic spine confirms diagnosis of paraspinal infection. Echocardiogram suggested aortic valve vegetation. Physical Exam Vital Signs (Past 24 Hours): Last Vital Signs Temp 36.9 C 11/07/18 07:49 Pulse 75 11/07/18 07:49 Resp 18 11/07/18 07:49 BP 139/88 11/07/18 07:49 Pulse Ox 94 11/07/18 07:49 Constitutional: WD/WN, vitals as above comfortable; no acute distress Eyes: PERRL, conjunctivae normal, anicteric sclerae ENMT: external ear and nose normal, oropharynx normal Neck: trachea midline, no thyromegaly neck nontender Respiratory: normal respiratory effort, lungs clear to auscultation normal percussion; does not use accessory muscles Cardiovascular: Rate/Rhythm: regular rate and regular rhythm Heart Sounds: normal S1 and normal S2; no gallop, no murmur and no cardiac rub Vessels: normal peripheral pulses; no JVD Gastrointestinal (Abdomen): normal bowel sounds, soft, nontender, no hepatosplenomegaly Musculoskeletal: no cyanosis or clubbing, extremities motor strength 5/5 Spine: thoracic spine normal to inspection and lumbar spine normal to inspection; no cervical spinal tenderness Skin: normal turgor; no rashes Neurologic: patellar DTR's 2+ bilat, sensation intact no focal motor deficits Psychiatric: A+Ox3, euthymic affect Orientation: cooperative Lymphatic: no cervical or axillary lymphadenopathy no inguinal lymphadenopathy Results & Data Laboratory Results [facility] 11/07/18 05:25 Sodium 135 L Potassium 3.4 L Chloride 101 Carbon Dioxide 28 BUN 7 Creatinine 0.84 Glucose 119 H Calcium 7.5 L Diagnostic Findings Microbiology 11/06/18 07:14 Blood Blood Culture - Preliminary Gram positive cocci 11/06/18 06:58 Blood Blood Culture - Preliminary Gram positive cocci 11/01/18 07:48 Blood Blood Culture - Final Staphylococcus aureus 11/04/18 09:41 Blood Blood Culture - Preliminary Staphylococcus aureus 11/04/18 09:33 Blood Blood Culture - Preliminary Staphylococcus aureus 11/01/18 07:59 Blood Blood Culture - Final Staphylococcus aureus 11/02/18 09:10 Blood Blood Culture - Preliminary Gram positive cocci 11/02/18 09:44 Blood Blood Culture - Preliminary Gram positive cocci 10/31/18 01:20 Urine,Clean Catch Urine Culture - Final No growth - less than 1,000 colonies/mL.
--- NOTE | 2018-11-07 13:52 | Medical Student Progress Note ---
Date of Service November 07, 2018 Assessment & Plan (1) Gram-positive bacteremia: 48 yo m without significant medical hx, admitted with upper GI bleeding in context of severe N/V/D starting last weekend; came to ED with coffee ground emesis and concern for GI bleeding. 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 Pt discovered to have bacteremia and thoracic paraspinal abscesses. Pt's pain is improving with Abx treatment-- indicating pain may back, flank, and RUQ pain may be referred pain from the paraspinal abscesses. Most recent blood cultures from 11/06 grew gram positive cocci. Another set of blood cultures draw today, 11/07. Once Blood cultures show no growth (ie bacteremia treated), then PICC line can be placed and pt will continue IV Abx for minimum of 6wks. Echo from 11/06 showed aortic valve vegetation; thickening of an aortic leaflet. Pt meets [place] criteria for infective endocarditis-- 2/2 of major criteria: sustained bacteremia and aortic valve vegetation. He also had some minor criteria of fever and vascular phenomena including spetic embolic to LEs. Cardiology will be consulted to follow given new echo results. Staph may have been introduced into the blood stream from pt removing an in- grown toenail at home; pt has had no recent hx of skin lesions. Loose BMs may be from abx treatment; if continues or worsens to profuse watery diarrhea, will order test for c. diff. (2) Esophagitis: Esophagitis discovered during GI workup for GI bleed. No bleed discovered; hematemesis was most likely from a M-W tear from significant episodes of emesis. 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 No surgical intervention required at this time; will f/u with nephrology. Subjective 48 yo m without significant medical hx, admitted with upper GI bleeding in context of severe N/V/D starting last weekend; came to ED with coffee ground emesis and concern for GI bleeding. 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 Pt discovered to have bacteremia and thoracic paraspinal abscesses. Pt states flank and RUQ pain now a 1/10; minimal pain and described as positional. Pt states he did not feel feverish, but he did spike a temperature of 39.1 No F/C/N/V or hematuria. Pt does say he has been having 2-3 loose BMs since yesterday. GENERAL, CONSTITUTIONAL- No Recent weight loss, Fever, Chills HEART, CARDIOVASCULAR- No Chest pain or pressure, Arrhythmia or palpitations, Shortness of breath, Peripheral edema RESPIRATORY- No Cough, Shortness of breath, Wheezing GASTROINTESTINAL- No Abdominal pain, Heartburn, Bloody stool SKIN & INTEGUMENTARY- No Rashes, Sores, Blisters, Growths Physical Exam Vital Signs (Past 24 Hours): Last Vital Signs Temp 36.6 C 11/07/18 11:00 Pulse 80 11/07/18 11:00 Resp 18 11/07/18 11:00 BP 145/87 H 11/07/18 11:00 Pulse Ox 98 11/07/18 11:00 Physical Exam: GENERAL: WD/WN, alter, cooperative, no acute distress HEENT: Mouth: Moist mucous membranes, no lesions. Nervous System: Mental status: Alert and oriented x 3, good concentration. Cranial nerves IIXII grossly intact. Motor: Strength 5/5 in all muscle groups UE and LE Chest/Lung: Clear to auscultation bilaterally. No rales, rhonchi, wheezing, or rubs. Heart: PMI not displaced. Regular rate and rhythm. Normal S1, S2. No murmurs, rubs, or gallops. Abdomen: Soft, nontender, nondistended, BS present Extremities: No clubbing, cyanosis, or edema.
[2018-11-07] MEDS: ACETAMINOPHEN 325 MG TAB PO PRN (14:46)
--- NOTE | 2018-11-07 18:00 | Cardiology Consultation ---
Date of Consultation November 07, 2018 Assessment & Plan (1) Aortic valve endocarditis: He has presumptive endocarditis based on a documented paraspinous abscess, persistent bacteremia and a suspect echocardiogram. I would stop short of saying there is a definite vegetation on the aortic valve, but the appearance is suspicious. He may have had other sequelae of endocarditis to include cutaneous lesions. These appear to have resolved. There does not appear to be any other sign of endocarditis although an ophthalmological examination was not performed today. In the event that a definite diagnosis is required for determination of therapy, transesophageal echocardiogram would be indicated. However, the patient is currently on treatment for his bacteremia. There is some concern that his bacteremia has persisted despite several days of therapy. It seems possible that he may require more aggressive interventions such as drainage of his known abscess. Indications for surgery in the setting of definite bacterial endocarditis would be persistent bacteremia. He does not appear to have any other current indication for surgical intervention. I did order him another EKG to make sure there is no evidence of conduction disease given the potential involvement of the aortic valve. The lesions size is quite small and there is no evidence of valve dysfunction. History of Present Illness Reason for Consultation: Bacteremia Requesting Physician: Jonas Attending Physician: Mark Mcdaniel History of Present Illness The patient is a 48-year-old gentleman without a known history of cardiac disease who initially presented to [facility] with symptoms of a gastrointestinal illness. The patient states that for several days leading up to his admission he had symptoms of abdominal discomfort nausea, vomiting and diarrhea. He also had evidence of hematemesis. His records suggest that he had subjective fevers and chills leading up to his admission, but on interview today he did not report such symptoms. His initial evaluation involved EGD and volume resuscitation. He was noted to have an element of esophagitis and superficial gastric ulcers as well as duodenitis. He was treated with proton pump inhibitors and his symptoms improved. Currently he is tolerating a regular diet and has no significant abdominal discomfort. During his hospitalization the patient did develop significant fevers and chills. He underwent imaging studies and blood culture which revealed a bacteremia and eventually paraspinal abscess. Initial echocardiogram performed during his admission was not definitive for valvular lesions or endocarditis, a repeat echocardiogram performed yesterday suggested a possible aortic valve lesion. Patient has continued to be bacteremic and the culprit organism is Staph aureus. At the time of this interview he claims to be feeling well. He is aware subjective fevers and chills at times. He blames some of this on poor climbing control in his hospital room. He has occasional abdominal discomfort which radiates to his flank. This is very mild in nature currently. 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 While his job is not physically active, he does not report exertional symptoms such as chest pain or dyspnea. He cannot recall any specific injuries recently. There is some concern there removal of a toenail introduced bacteria. He states that this toenail removal occurred several weeks ago. He has not had any dental problems recently. He cannot recall any other lacerations or wounds. Allergies Allergy/AdvReac Type Severity Reaction Status Date / Time cat dander Allergy Intermediate HIVES, Verified 10/30/18 18:52 PUFFY EYES Home Medications Home Medications Medication Instructions Recorded Confirmed Type trazodone 100 - 200 mg PO HS 08/21/18 10/30/18 History cefazolin in dextrose (iso-os) 2 gm IV Q8H #1200 ea 11/08/18 Rx pantoprazole 40 mg PO BID #60 tab 11/08/18 Rx sucralfate 10 ml PO QID #100 ml 11/08/18 Rx Patient History Medical History No pertinent past medical history Surgical History No pertinent past surgical history Family History Other Family history non-contributory Social History Preferred Language: [place] Beliefs That Will Affect Care: None Current Living Situation: Spouse Other Information That Helps Us Care for You: No Feels Safe at Home: Yes Safety Concerns: Feels Safe At This Time Smoking Status: Never smoker Hx Alcohol Use: Yes Hx Substance Use: No Review of Systems Complete. Pertinent positives noted in history present illness. Patient did notice several raise lesions on his lower extremities over the past week. He describes these as small pimples. Not resolved Physical Exam Vital Signs (Past 24 Hours): Last Vital Signs Temp 36.7 C 11/07/18 15:00 Pulse 82 11/07/18 15:00 Resp 18 11/07/18 15:00 BP 147/82 H 11/07/18 15:00 Pulse Ox 97 11/07/18 15:00 Physical Exam: The patient is alert and oriented. Mood and affect appeared normal. He answered all questions appropriately. HEENT: Pupils are equal and reactive to light and accommodation. Extraocular movements are intact. The sclerae are anicteric. Neuro: Cranial nerves intact Neck: Patient's neck is supple. He has palpable carotid pulses bilaterally without bruits on auscultation. There is no evidence of jugular venous distention. The thyroid is not enlarged. Lungs: Clear to auscultation bilaterally. He has good air movement without use of accessory muscles. No rales wheezes or rhonchi. Cardiac: Heart demonstrates a regular rate and rhythm. Normal S1 and S2. No murmurs on examination. Pulses: The patient has palpable radial pulses bilaterally that are equal in intensity Extremities: There was no evidence of hypoperfusion. There is no cyanosis or clubbing. There is no edema. Skin: I did not appreciate any rashes on examination today. Only 1 macular lesion on the right calf. No evidence of infection. Nontender. No splinter hemorrhages. No painful nodules. Results & Data Laboratory Results Abnormal Lab Results 11/07/18 05:25 Sodium 135 L Potassium 3.4 L Chloride 101 Carbon Dioxide 28 Anion Gap 6.0 BUN 7 Creatinine 0.84 Est Cr Clr Drug Dosing 146.4 Est GFR ( Amer) 121.7 Est GFR (Non-Af Amer) 105.0 BUN/Creatinine Ratio 8.4 L Glucose 119 H Calcium 7.5 L Diagnostic Findings Echocardiogram reveals normal valvular function and LV function. Possible vegetation involving the aortic valve. MRI revealed paraspinous thoracic abscess and possible epidural abscess. CT scanning of the abdomen revealed possible left renal AV fistula ECG Additional Comments: Initial EKG obtained on October 30 demonstrated sinus tachycardia without conduction deficit
--- NOTE | 2018-11-07 21:18 | Hospitalist Progress Note ---
Date of Service November 07, 2018 Assessment & Plan (1) Aortic valve endocarditis: Early on in the patient's stay there was high suspicion that he had endocarditis given his persistent methicillin sensitive staph aureus bacteremia. Initial echo did not show any obvious vegetations. However repeat echocardiogram from yesterday did indeed show a small suspected vegetation on the aortic valve. The patient's recent skin manifestations as well as the thoracic spine abscesses are all consistent with septic emboli from the endocarditis. The patient remains on Ancef every 8 hours. Fortunately repeat blood cultures from yesterday have already turned positive. Therefore repeat blood cultures were obtained this morning. Patient ultimately needs PICC line however this will be deferred until sterility of the blood is achieved. We will ask cardiology to formally consult in light of the vegetation on the aortic valve. Thus far the aortic valve has no evidence of insufficiency. If the patient continues to have persistent bacteremia despite appropriate antibiotic therapy I agree with Dr. Soni from infectious disease that surgical consultation may be needed. The patient admitted to removing an ingrown toenail about 1 month ago on his own at his home. I believe that he likely seeded his blood with this minor procedure. I have no other obvious source for the bacteremia at this time. (2) Thoracic abscess: These abscesses are a result of his bacteremia and endocarditis. He has minimal pain in the back today. He had been having some radicular pain to the right chest wall from these abscesses. However gabapentin 100 mg 3 times daily has been effective for this. Continue medical management with Ancef intravenously. (3) Staphylococcus aureus sepsis: See discussion above and aortic valve endocarditis. (4) Hyponatremia: Resolved (5) Esophagitis: As seen on EGD done earlier this admission. This was likely the cause of his upper GI bleeding. Hemoglobin has remained stable since his upper endoscopy. Continue PPI twice daily as well as sucralfate 1 g 4 times daily. His Toradol has been discontinued and I would stay away from NSAIDs at this time. (6) Renal arteriovenous fistula: The patient was seen in consult by vascular surgery and at this time outpatient surveillance was all that was recommended. (7) Upper GI bleed: Likely due to esophagitis. Plan to repeat his CBC in the morning. (8) DVT prophylaxis: In light of the patient's recent upper GI bleeding chemical anticoagulation has been avoided to date. Continue aggressive ambulation. Subjective Patient states that his right-sided radicular chest wall pain is much better today. He reports a minimal amount of pain with activity. He has had 2-3 loose stools since last evening. Denies any abdominal pain. Denies any pain with eating food. Denies any fevers or chills. He is frustrated by how long his stay has been and is anxious to be discharged. He does voice understanding of the importance of having negative blood cultures. Constitutional: no fever and no chills Respiratory: no cough and no dyspnea Cardiovascular: no chest pain Gastrointestinal: no abdominal pain Physical Exam Vital Signs (Past 24 Hours): Last Vital Signs Temp 36.7 C 11/07/18 15:00 Pulse 82 11/07/18 15:00 Resp 18 11/07/18 15:00 BP 147/82 H 11/07/18 15:00 Pulse Ox 97 11/07/18 15:00 Constitutional: well developed and well nourished; no acute distress ENMT: external ear and nose normal, oropharynx normal Respiratory: normal respiratory effort, lungs clear to auscultation Cardiovascular: RRR, no murmur, no edema Heart Sounds: normal S1 and normal S2; no murmur Vessels: posterior tibial pulses present and dorsalis pedis pulses present; no JVD Gastrointestinal (Abdomen): normal bowel sounds, soft, nontender, no hepatosplenomegaly Skin: no rashes, warm and dry Psychiatric: A+Ox3, euthymic affect Results & Data Laboratory Results Laboratory Results - last 24 hr 11/07/18 05:25 Sodium 135 L Potassium 3.4 L Chloride 101 Carbon Dioxide 28 Anion Gap 6.0 BUN 7 Creatinine 0.84 Est Cr Clr Drug Dosing 146.4 Est GFR ( Amer) 121.7 Est GFR (Non-Af Amer) 105.0 BUN/Creatinine Ratio 8.4 L Glucose 119 H Calcium 7.5 L
[2018-11-07] MEDS: TRAZODONE HCL 100 MG TAB PO SCH (21:24)
[2018-11-08] MEDS: CEFAZOLIN 2000MG 2,000 MG/15 ML SYR IV SCH ×3 (01:32→17:49)
[2018-11-08 07:34] LABS: Hematocrit (blood only) 32.9 % (42-52); Hemoglobin 11.1 g/dL (14.0-18.0); Mean Corpuscular Hgb Conc 33.7 g/dL (32-36); Platelet Count 266 K/uL (130-400); RDW Coefficient of Variation 13.1 % (11.5-14.5); RDW Standard Deviation 42.7 fL (36.4-46.3); Red Blood Count 3.74 M/uL (4.7-6.1); White Blood Count 8.83 K/uL (4.8-10.8)
[2018-11-08 07:52] LABS: BUN Creatinine Ratio 6.5 (10-20); C Reactive Protein 3.44 mg/dl (0-0.29); Calcium 7.6 mg/dl (8.5-10.1); Creatinine Clr Calc Pharmacy 149.9 ml/min; Est GFR (African American) 122.9; Potassium 3.8 mmol/L (3.5-5.1)
[2018-11-08] MEDS: SUCRALFATE 1 GM/10 ML UDC PO SCH ×4 (08:32→20:14)
[2018-11-08] MEDS: GABAPENTIN 100 MG CAP PO SCH ×3 (08:33→20:14)
[2018-11-08] MEDS: LIDOCAINE 5% 1 PATCH TD SCH (08:34)
[2018-11-08] MEDS: PANTOprazole 40 MG TAB PO SCH ×2 (08:34→20:13)
[2018-11-08] MEDS: DOCUSATE SODIUM 100 MG CAP PO SCH ×2 (08:34→20:19)
--- NOTE | 2018-11-08 14:06 | Infectious Disease Progress Nt ---
Date of Service November 08, 2018 Assessment & Plan (1) Aortic valve endocarditis: continue current IV abx. patient agreeable to transfer. zaira with this. discussed with primary service, arrangements to [place] made [place] [facility] [place] Subjective pt seen in followup, remains on IV ancef for persistant MSSA BSI. all cultures + to date, dating back to 11/01. Had echo done showing AV IE. Most recent cultures from 11/07 now growing gpc 2/2 sets. Discussed with primary service the need for transfer to tertiary center for ct surgery eval if cultures continued to be + on appropriate abx. Discussed with patient as well and he is agreeable to transfer. tolerating abx. denies f/c. Denies cp, sob, cough, wheeze, no abd pain, no n/v/d. some back pain but no worse. wbc 8.8 today. blood cultures + 11/01, 11/04, 11/06, 11/07. all remaining ros reviewed and are negative Physical Exam Vital Signs (Past 24 Hours): Last Vital Signs Temp 37.1 C 11/08/18 11:29 Pulse 80 11/08/18 11:29 Resp 20 11/08/18 11:29 BP 151/79 H 11/08/18 11:29 Pulse Ox 98 11/08/18 11:29 Constitutional: WD/WN, vitals as above Eyes: PERRL, conjunctivae normal, anicteric sclerae ENMT: external ear and nose normal, oropharynx normal Neck: normal visual inspection Respiratory: normal respiratory effort, lungs clear to auscultation Cardiovascular: Rate/Rhythm: regular rate Heart Sounds: + murmur Gastrointestinal (Abdomen): normal bowel sounds, soft, nontender, no hepatosplenomegaly Musculoskeletal: no cyanosis or clubbing, extremities motor strength 5/5 Skin: no rashes, warm and dry Psychiatric: A+Ox3, euthymic affect Results & Data Laboratory Results Microbiology 11/06/18 07:14 Blood Blood Culture - Preliminary Staphylococcus aureus 11/06/18 06:58 Blood Blood Culture - Preliminary Staphylococcus aureus 11/02/18 09:44 Blood Blood Culture - Final Staphylococcus aureus 11/02/18 09:10 Blood Blood Culture - Final Staphylococcus aureus 11/07/18 09:47 Blood Blood Culture - Preliminary Gram positive cocci 11/07/18 09:25 Blood Blood Culture - Preliminary Gram positive cocci 11/04/18 09:33 Blood Blood Culture - Preliminary Staphylococcus aureus 11/01/18 07:48 Blood Blood Culture - Final Staphylococcus aureus 11/04/18 09:41 Blood Blood Culture - Preliminary Staphylococcus aureus 11/01/18 07:59 Blood Blood Culture - Final Staphylococcus aureus 10/31/18 01:20 Urine,Clean Catch Urine Culture - Final No growth - less than 1,000 colonies/mL.
--- NOTE | 2018-11-08 14:33 | Medical Student Progress Note ---
Date of Service November 08, 2018 Assessment & Plan (1) Gram-positive bacteremia: 48 yo m without significant medical hx, admitted with upper GI bleeding in context of severe N/V/D starting last weekend; came to ED with coffee ground emesis and concern for GI bleeding. 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 Pt discovered to have bacteremia and thoracic paraspinal abscesses. Pt's pain is improving with Abx treatment-- indicating pain may back, flank, and RUQ pain may be referred pain from the paraspinal abscesses. Blood cultures positive 11/01, 11/02, 11/04, 11/06, 11/07 CRP is down to 3.44 (11/08) from 25.7 on 11/01. aortic vegetation on TTE echo small paraspinal thoracic abscesses transfer to [facility] [place] for eval for surgical intervention (aortic vegetation, thoracic abscess) Initial plan was for once Blood cultures show no growth (ie bacteremia treated), then PICC line can be placed and pt will continue IV Abx for minimum of 6wks. However, due to persistent bacteremia pt will be transferred to [facility] [place] for eval for surgical intervention as discussed above. Echo from 11/06 showed aortic valve vegetation; thickening of an aortic leaflet. Pt meets [place] criteria for infective endocarditis-- 2/2 of major criteria: sustained bacteremia and aortic valve vegetation. He also had some minor criteria of fever and vascular phenomena including spetic embolic to LEs. Cardiology was consulted-- small vegetation aortic valve but no valve dysfunction; agrees that if persistent bacteremia need to determine whether surgical intervention is necessary. Staph may have been introduced into the blood stream from pt removing an in- grown toenail at home; pt has had no recent hx of skin lesions. Loose BMs may be from abx treatment; if continues or worsens to profuse watery diarrhea-- will order c. diff test today 11/08 (2) Esophagitis: Esophagitis discovered during GI workup for GI bleed. No bleed discovered; hematemesis was most likely from a M-W tear from significant episodes of emesis. 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 No surgical intervention required at this time; will f/u with nephrology. Subjective 48 yo m without significant medical hx, admitted with upper GI bleeding in context of severe N/V/D starting last weekend; came to ED with coffee ground emesis and concern for GI bleeding. 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 Pt discovered to have bacteremia and thoracic paraspinal abscesses. Pt states he has no flank or RUQ pain today. loose stool x 2 in past 24hrs; loose stools for 48hrs now No F/C/N/V or hematuria. GENERAL, CONSTITUTIONAL- No Recent weight loss, Fever, Chills HEART, CARDIOVASCULAR- No Chest pain or pressure, Arrhythmia or palpitations, Shortness of breath, Peripheral edema RESPIRATORY- No Cough, Shortness of breath, Wheezing GASTROINTESTINAL- No Abdominal pain, Heartburn, Bloody stool SKIN & INTEGUMENTARY- No Rashes, Sores, Blisters, Growths Physical Exam Vital Signs (Past 24 Hours): Last Vital Signs Temp 37.1 C 11/08/18 11:29 Pulse 80 11/08/18 11:29 Resp 20 11/08/18 11:29 BP 151/79 H 11/08/18 11:29 Pulse Ox 98 11/08/18 11:29 Physical Exam: GENERAL: WD/WN, alter, cooperative, no acute distress HEENT: Mouth: Moist mucous membranes, no lesions. Nervous System: Mental status: Alert and oriented x 3, good concentration. Cranial nerves IIXII grossly intact. Motor: Strength 5/5 in all muscle groups UE and LE Chest/Lung: Clear to auscultation bilaterally. No rales, rhonchi, wheezing, or rubs. Heart: Regular rate and rhythm. Normal S1, S2. No murmurs, rubs, or gallops. Abdomen: Soft, nontender, nondistended, BS present Extremities: No clubbing, cyanosis, or edema.
--- NOTE | 2018-11-08 20:01 | Hospitalist Progress Note ---
Date of Service November 08, 2018 Assessment & Plan (1) Aortic valve endocarditis: The patient has had persistently positive blood cultures for staph aureus since the time of admission. This is despite appropriate antibiotic therapy with IV Ancef. Clinically the patient is stable and appears well. CRP level has dropped considerably from the mid 20s down to less than 5. He has had no fever in 3-4 days. Despite these improvements again the cultures being positive is highly concerning. Yesterday's limited echocardiogram appeared to show an aortic valve vegetation due to the appearance of thickening. The patient's entire clinical course and clinical manifestations including set septic emboli to the lungs, septic emboli lower extremities, splenomegaly on imaging, as well as numerous other findings all support the diagnosis of endocarditis. 1 of the indications for cardiothoracic surgery for endocarditis is that of persistent bacteremia. Both our ob gyn as well as our infectious disease specialist feel that the patient should undergo evaluation by CT surgeon at a tertiary care center in light of the above. For that reason I contacted [facility] today I spoke with a Dr. Mullen of their cardiothoracic program who graciously accepted Mr. Luong to their institution for ongoing management. Repeat blood cultures x2 sets were obtained this afternoon. We will continue his IV Ancef as previous. (2) Thoracic abscess: The other possibility for the persistent bacteremia is that of the small abscesses previously seen on thoracic spine MRI. Could consider reimaging the thoracic spine in light of the above. He is having some mild intermittent back pain at times but nothing severe. Earlier this week he had some radicular pain from the thoracic spine but this improved with use of gabapentin 100 mg 3 times daily. Once he has had [facility] neurosurgery can be involved in his care because of the thoracic spine issues. In the meantime continue tramadol and Tylenol as needed for pain. (3) Staphylococcus aureus sepsis: The patient continues to have positive blood cultures for staph aureus. This is likely due to either aortic valve endocarditis and/or the thoracic spine abscesses. Plan to repeat his blood cultures x2 sets today. Continue intravenous Ancef. (4) Gastric ulcer: As seen on recent upper endoscopy. Continue PPI twice daily as well as Carafate 4 times a day. (5) Esophagitis: As seen on recent upper endoscopy. Continue PPI twice daily as well as Carafate 4 times a day. (6) Renal arteriovenous fistula: This was seen incidentally on imaging done earlier this day. He was seen in consult by [facility] vascular surgery who did not recommend any intervention at this time and was felt to be an incidental finding. Vascular surgery felt that the renal arteriovenous fistula may be congenital in origin. (7) DVT prophylaxis: SCDs and ambulation. Patient's was extensively updated at bedside today. She is aware of the impending transfer to [facility] for surgical evaluation. Subjective Despite his November 06 and November 07 blood cultures being positive the patient denies any fever or chills. The patient actually feels quite good and is frustrated that the blood cultures keep returning positive. He does report some mild midthoracic back pain. The pain is no worse than previous. He denies any radicular pain to the right costal margin. The patient is aware that he may require transfer to tertiary care because of the persistent bacteremia. He reported that he would prefer going to [facility] rather than [facility]. He has had some loose stool overnight and is gone at least twice. Appetite has been good. Constitutional: no fever, no chills and no sweats Respiratory: no cough and no dyspnea Cardiovascular: no chest pain Gastrointestinal: no abdominal pain Physical Exam Vital Signs (Past 24 Hours): Last Vital Signs Temp 36.5 C 11/08/18 19:07 Pulse 88 11/08/18 19:07 Resp 18 11/08/18 19:07 BP 153/83 H 11/08/18 19:07 Pulse Ox 97 11/08/18 19:07 Constitutional: well developed and well nourished; no acute distress and not ill appearing ENMT: external ear and nose normal, oropharynx normal Respiratory: normal respiratory effort, lungs clear to auscultation Cardiovascular: RRR, no murmur, no edema Heart Sounds: normal S1 and normal S2; no murmur Vessels: posterior tibial pulses present and dorsalis pedis pulses present; no JVD Gastrointestinal (Abdomen): normal bowel sounds, soft, nontender, no hepatosplenomegaly Musculoskeletal: right great toe without signs of onychia; there is minimal erythema surrounding the base of the nail. There is no sign of any abscess. Skin: no rashes, warm and dry Psychiatric: A+Ox3, euthymic affect Results & Data Laboratory Results Laboratory Results - last 24 hr 03/11/08/18 11/08/18 06:43 06:43 06:43 WBC 8.83 RBC 3.74 L Hgb 11.1 L Hct 32.9 L MCV 88.0 MCH 29.7 MCHC 33.7 RDW Std Deviation 42.7 RDW Coeff of Cruz 13.1 Plt Count 266 MPV 9.0 ESR 69 H Sodium 135 L Potassium 3.8 Chloride 102 Carbon Dioxide 28 Anion Gap 5.0 BUN 5 L Creatinine 0.82 Est Cr Clr Drug Dosing 149.9 Est GFR ( Amer) 122.9 Est GFR (Non-Af Amer) 106.0 BUN/Creatinine Ratio 6.5 L Glucose 123 H Calcium 7.6 L C-Reactive Protein 3.44 H (1) Gastric ulcer Gastric ulcer chronicity: acute Gastric ulcer complication status: with hemorrhage Qualified Code(s): K25.0 - Acute gastric ulcer with hemorrhage
[2018-11-08] MEDS: TRAZODONE HCL 100 MG TAB PO SCH (20:13)
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
[2018-11-09] MEDS: CEFAZOLIN 2000MG 2,000 MG/15 ML SYR IV SCH ×3 (03:29→17:12)
[2018-11-09] MEDS: LIDOCAINE 5% 1 PATCH TD SCH (08:05)
[2018-11-09] MEDS: DOCUSATE SODIUM 100 MG CAP PO SCH ×2 (08:05→20:29)
[2018-11-09] MEDS: PANTOprazole 40 MG TAB PO SCH ×2 (08:06→20:29)
[2018-11-09] MEDS: GABAPENTIN 100 MG CAP PO SCH ×3 (08:06→20:29)
[2018-11-09] MEDS: SUCRALFATE 1 GM/10 ML UDC PO SCH ×4 (08:06→20:30)
[2018-11-09] MEDS: TRAMADOL HCL 50 MG TABLET PO PRN (13:11)
[2018-11-09] MEDS: TRAZODONE HCL 100 MG TAB PO SCH (20:29)
--- NOTE | 2018-11-09 20:43 | Hospitalist Progress Note ---
Date of Service November 09, 2018 Assessment & Plan (1) Staphylococcus aureus sepsis: with suspected AV endocarditis. persistently + cultures since admission despite IV ancef. possibly may need surgery on AV due to the ongoing + cultures. thoracic spine abscesses may be contributing to these cultues as well. accepted to [place] -- awaiting bed. will need CT surgery eval for suspected AV endocarditis and neurosurgery eval for t-spine. cont IV ancef fortunately pt is clinically stable. (2) Aortic valve endocarditis: As noted above there is high concern about endocarditis of the aortic valve based on echocardiogram findings from November 06. I suspect the patient will need a transesophageal echocardiogram for confirmation upon transfer [place] [facility] Fortunately the aortic valve appears to have good function at this time. (3) Thoracic abscess: About longterm through the patient's hospital stay he began to complain of midthoracic back pain. MRI of the thoracic spine demonstrated multiple small abscesses. These are presumably due to staph aureus. The patient's pain improved. He appeared to have radicular pain to the right costal margin and this pain improved with use of gabapentin 3 times daily. Cont gabapentin as is for now. Consider follow-up MRI as well as neurosurgical consultation upon transfer to [facility]. (4) Hyponatremia: resolved. (5) Gastric ulcer: Again the patient's initial presentation was that of coffee-ground emesis in the setting of what appeared to be a gastroenteritis. He was seen in consultation by [facility] gastroenterology and underwent upper endoscopy revealing esophagitis, duodenitis, and multiple shallow gastric ulcers. Biopsies from these regions did not show any atypia, cancer, or H pylori. Upper GI symptoms resolved with use of PPI and Carafate. Gastrin level was checked to be complete and this returned normal. cont PPI cont carafate (6) Esophagitis: This was confirmed by way of upper endoscopy and was treated with PPI and Carafate. 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 No intervention was recommended for the fistula. It was postulated that the fistula was possibly congenital in origin. Recommend follow-up with [facility] vascular surgery in their [place] office after his stay at [facility]. (8) Acute kidney injury: resolved stable BMPs since (9) Acute blood loss anemia: 2nd to esophagitis & gastric ulcers stable CBCs since earlier this stay awaiting [place] [facility] [place] updated about +blood cultures from 11/08 Subjective no new symptoms overnight feeling well eating well ambulating w/o difficulty diarrhea resolved Constitutional: no fever and no chills Respiratory: no cough and no dyspnea Cardiovascular: no chest pain Physical Exam Vital Signs (Past 24 Hours): Last Vital Signs Temp 36.6 C 11/09/18 19:36 Pulse 87 11/09/18 19:36 Resp 18 11/09/18 19:36 BP 143/83 H 11/09/18 19:36 Pulse Ox 96 11/09/18 19:36 Constitutional: well developed and well nourished; no acute distress and not ill appearing ENMT: external ear and nose normal, oropharynx normal Respiratory: normal respiratory effort, lungs clear to auscultation Cardiovascular: RRR, no murmur, no edema Heart Sounds: normal S1 and normal S2; no murmur Vessels: posterior tibial pulses present and dorsalis pedis pulses present; no JVD Gastrointestinal (Abdomen): normal bowel sounds, soft, nontender, no hepatosplenomegaly Skin: no rashes, warm and dry Psychiatric: A+Ox3, euthymic affect Results & Data Laboratory Results blood cx's 11/08 + for GPC (1) Gastric ulcer Gastric ulcer chronicity: acute Gastric ulcer complication status: with hemorrhage Qualified Code(s): K25.0 - Acute gastric ulcer with hemorrhage
[2018-11-10] MEDS: CEFAZOLIN 2000MG 2,000 MG/15 ML SYR IV SCH ×2 (01:41→09:04)
[2018-11-10] MEDS: GABAPENTIN 100 MG CAP PO SCH ×2 (09:02→15:31)
[2018-11-10] MEDS: SUCRALFATE 1 GM/10 ML UDC PO SCH ×3 (09:02→17:14)
[2018-11-10] MEDS: PANTOprazole 40 MG TAB PO SCH (09:02)
[2018-11-10] MEDS: LIDOCAINE 5% 1 PATCH TD SCH (09:03)
[2018-11-10] MEDS: DOCUSATE SODIUM 100 MG CAP PO SCH (09:03)
== END 2018-11-10 19:42 | disposition short-term general hospital (02) | DRG 871 ==
LOC: ED 17:52 → 2E 21:23 → SUATTDRO 21:23 → 2E 22:05 → 4E 11-01 15:27
DX: G47.00 Insomnia, unspecified; A41.01 Sepsis due to Methicillin susceptible Staphylococcus aureus; K20.9 Esophagitis, unspecified; K29.80 Duodenitis without bleeding; D62 Acute posthemorrhagic anemia; N17.9 Acute kidney failure, unspecified; E87.1 Hypo-osmolality and hyponatremia; I76 Septic arterial embolism; I33.0 Acute and subacute infective endocarditis; E87.6 Hypokalemia; J15.211 Pneumonia due to Methicillin susceptible Staphylococcus aureus; I95.9 Hypotension, unspecified; G06.1 Intraspinal abscess and granuloma; K25.0 Acute gastric ulcer with hemorrhage